=== PATIENT | female | born 1995 | race Caucasian/White ===

== ENCOUNTER 2019-11-13 17:34 | Emergency (ER) | payer SELFPAY ==
[2019-11-13] MEDS ORDERED: Dexamethasone 10 MG/ML VIAL ONE (18:51)
[2019-11-13] MEDS ORDERED: cefTRIAXone\\ROCEPHIN 1 GM VIAL ONE (18:51)
[2019-11-13] MEDS ORDERED: Lidocaine 1% PF 5 ML VIAL ONE (18:51)
== END 2019-11-13 19:38 | disposition home or self-care (01) ==
LOC: ERS 17:34
DX: J36 Peritonsillar abscess (principal); Z87.891 Personal history of nicotine dependence
CPT/HCPCS: 96372; 99283; J0696; J1100; J2001

== ENCOUNTER 2022-04-28 11:09 | Emergency (ER) | payer OTHER ==
[2022-04-28 11:42] LABS: #Basophils 0.1 thou/uL (0.0-0.2); #Eosinphils 0.3 thou/uL (0.0-0.7); #Lymphocytes 3.4 thou/uL (1.20-3.40); #Neutrophils 10.7 thou/uL (1.40-6.50); %Basophils 0.7 % (0.0-1.0); %Eosinophils 2.1 % (0.0-10.0); %Lymphocytes 21.6 % (21.0-51.0); %Monocytes 6.4 % (0.0-10.0); %Neutrophils 69.2 % (42.0-75.0); Hemoglobin 13.2 g/dL (12.0-16.0); Mean Corpuscular HGB CONC 31.2 g/dL (32.0-36.0); Mean Corpuscular Hemoglobin 27.4 pg (27.0-31.0); Mean Corpuscular Volume 87.8 fL (78.0-98.0); Mean Platelet Volume 11.1 fL (7.4-10.4); Platelet Count 225 thou/uL (130-400); RBC Distribution Width 14.5 % (11.5-14.5); Red Blood Cell (RBC) Count 4.81 mill/uL (4.20-5.40); White Blood Cell (WBC) Count 15.5 thou/uL (4.8-10.8)
[2022-04-28 12:12] LABS: ALT (SGPT) 40 U/L (8-55); AST (SGOT) 29 U/L (5-34); Albumin 4.1 g/dL (3.5-5.0); Alkaline Phosphatase 77 U/L (40-110); Anion Gap 17 mmol/L (10-20); BUN (Urea Nitrogen) 16 mg/dL (7.0-18.7); Bilirubin, Total 0.2 mg/dL (0.2-1.2); Calc. Creatinine Clearance 0 mL/min (70-130); Calcium 9.4 mg/dL (7.8-10.44); Carbon Dioxide 22 mmol/L (22-29); Chloride 102 mmol/L (98-107); Globulin 4.4 g/dL (2.4-3.5); Glucose 155 mg/dL (70-105); Lipase 15 U/L (8-78); Potassium 4.8 mmol/L (3.5-5.1); Protein, Total 8.5 g/dL (6.0-8.3); Sodium 136 mmol/L (136-145)
[2022-04-28] MEDS ORDERED: Morphine 4 MG/ML VIAL ONE ×2 (12:14→13:18)
[2022-04-28 12:25] LABS: Bacteria/HPF None Seen HPF (None Seen); Bilirubin Negative (Negative); Blood, Urine Negative (Negative); Clarity Clear (Clear); Glucose, Urine (Dipstick) Normal (Negative); Ketone, Urine Negative (Negative); Leukocyte 75 Leu/uL (Negative); Nitrite Negative (Negative); Protein, Urine (Dipstick) Negative (Neg-Trace); RBC/HPF 0-3 HPF (0-3); Specific Gravity, Urine 1.024 (1.002-1.036); Squamous Epithelial 0-3 HPF (0-3); Urobilinogen Normal mg/dL (Less than 2); WBC/HPF 0-3 HPF (0-3); pH, Urine 6.5 (5.0-9.0)
[2022-04-28 12:40] LABS: BHCG - Serum Negative (NEGATIVE); Pregs Control Background? CLEAR/WHITE (CLR/WHITE); Pregs Control Bar Appear? YES (CONTROL BAR)
== END 2022-04-28 14:19 | disposition home or self-care (01) ==
LOC: ERS 11:09
DX: K80.20 Calculus of gallbladder without cholecystitis without obstruction (principal); Z87.891 Personal history of nicotine dependence
CPT/HCPCS: 76705; 80053; 81003; 81015; 83690; 84703; 85025; 93005; 96374; 96376; J2270

== ENCOUNTER 2022-06-04 22:24 | Inpatient (IN) | payer OTHER ==
[2022-06-04] MEDS ORDERED: Ondansetron PF 4 MG/2 ML Vial ONE (23:47)
[2022-06-04] MEDS ORDERED: Morphine 4 MG/ML VIAL ONE (23:47)
[2022-06-05 00:56] LABS: Hemoglobin 15.5 g/dL (12.0-16.0); Mean Corpuscular HGB CONC 32.3 g/dL (32.0-36.0); Mean Corpuscular Hemoglobin 28.6 pg (27.0-31.0); Mean Corpuscular Volume 88.4 fL (78.0-98.0); Mean Platelet Volume 11.6 fL (7.4-10.4); Platelet Count 370 thou/uL (130-400); RBC Distribution Width 14.8 % (11.5-14.5); Red Blood Cell (RBC) Count 5.41 mill/uL (4.20-5.40); White Blood Cell (WBC) Count 20.5 thou/uL (4.8-10.8)
[2022-06-05 01:02] LABS: BHCG - Serum Negative (NEGATIVE); Pregs Control Background? CLEAR/WHITE (CLR/WHITE); Pregs Control Bar Appear? YES (CONTROL BAR)
[2022-06-05 01:14] LABS: Band 12 % (5-11); MDiff Complete? YES; Monocytes 11 % (0-10); Neutrophil 77 % (42-75); Platelet Morphology Comment Appears Adequate; RBC Morphology Normal
[2022-06-05 01:20] LABS: ALT (SGPT) 152 U/L (8-55); AST (SGOT) 86 U/L (5-34); Albumin 4.1 g/dL (3.5-5.0); Alkaline Phosphatase 554 U/L (40-110); Anion Gap 18 mmol/L (10-20); BUN (Urea Nitrogen) 10 mg/dL (7.0-18.7); Calc. Creatinine Clearance 0 mL/min (70-130); Calcium 10.5 mg/dL (7.8-10.44); Carbon Dioxide 24 mmol/L (22-29); Chloride 97 mmol/L (98-107); Estimated GFR 108; Globulin 5.1 g/dL (2.4-3.5); Glucose 171 mg/dL (70-105); Potassium 3.8 mmol/L (3.5-5.1); Protein, Total 9.2 g/dL (6.0-8.3); Sodium 135 mmol/L (136-145)
[2022-06-05 01:33] LABS: Lipase 6846 U/L (8-78)
[2022-06-05 02:51] LABS: Bilirubin 2+ (Negative); Blood, Urine Trace (Negative); Clarity Turbid (Clear); Glucose, Urine (Dipstick) 30 mg/dL (Negative); Ketone, Urine Negative (Negative); Leukocyte 75 Leu/uL (Negative); Nitrite Negative (Negative); Protein, Urine (Dipstick) 100 mg/dL (Neg-Trace); RBC/HPF 0-3 HPF (0-3); Specific Gravity, Urine 1.025 (1.002-1.036); Squamous Epithelial 0-3 HPF (0-3); Urobilinogen 3 mg/dL (Less than 2); WBC/HPF Greater than 50 HPF (0-3)
[2022-06-05 02:54] LABS: Bacteria/HPF 1+ HPF (None Seen)
[2022-06-05] MEDS ORDERED: Morphine 4 MG/ML VIAL ONE (04:40)
[2022-06-05] MEDS ORDERED: Piperacillin/Tazobactam 3.375 GM VIAL ONE (05:08)
[2022-06-05] MEDS ORDERED: Ondansetron PF 4 MG/2 ML Vial IVP PRN ×2 (05:46→16:15)
[2022-06-05] MEDS ORDERED: Morphine 4 MG/ML VIAL SLOW IVP PRN ×2 (06:02→11:08)
[2022-06-05] MEDS: Sodium Chloride 0.9% 1,000 ML IV SCH ×2 (07:20→13:39)
[2022-06-05 07:41] LABS: Hemoglobin A1c 5.9 % (4.0-6.0)
[2022-06-05 08:44] LABS: #Eosinphils 0.2 thou/uL (0.0-0.7); #Lymphocytes 2.1 thou/uL (1.20-3.40); #Monocytes 1.1 thou/uL (0.11-0.59); #Neutrophils 13.3 thou/uL (1.40-6.50); %Basophils 0.3 % (0.0-1.0); %Eosinophils 1.3 % (0.0-10.0); %Lymphocytes 12.5 % (21.0-51.0); %Monocytes 6.3 % (0.0-10.0); %Neutrophils 79.6 % (42.0-75.0); Hemoglobin 13.2 g/dL (12.0-16.0); Mean Corpuscular HGB CONC 30.2 g/dL (32.0-36.0); Mean Corpuscular Hemoglobin 27.5 pg (27.0-31.0); Mean Platelet Volume 11.8 fL (7.4-10.4); Platelet Count 386 thou/uL (130-400); RBC Distribution Width 15.1 % (11.5-14.5); Red Blood Cell (RBC) Count 4.81 mill/uL (4.20-5.40); White Blood Cell (WBC) Count 16.8 thou/uL (4.8-10.8)
[2022-06-05] MEDS ORDERED: Sodium Chloride 0.9% 1,000 ML IV SCH ×2 (09:00→14:45)
[2022-06-05 11:05] LABS: Albumin 2.9 g/dL (3.5-5.0); Lipase 3213 U/L (8-78)
[2022-06-05 11:06] LABS: Chloride 107 mmol/L (98-107); Potassium 3.8 mmol/L (3.5-5.1); Sodium 137 mmol/L (136-145)
[2022-06-05 11:07] LABS: Glucose 123 mg/dL (70-105)
[2022-06-05 11:08] LABS: Globulin 3.7 g/dL (2.4-3.5); Protein, Total 6.5 g/dL (6.0-8.3)
[2022-06-05 11:09] LABS: ALT (SGPT) 94 U/L (8-55); AST (SGOT) 41 U/L (5-34); Alkaline Phosphatase 386 U/L (40-110); Anion Gap 14 mmol/L (10-20); BUN (Urea Nitrogen) 8 mg/dL (7.0-18.7); Bilirubin, Total 2.2 mg/dL (0.2-1.2); Calc. Creatinine Clearance 0 mL/min (70-130); Calcium 8.3 mg/dL (7.8-10.44); Carbon Dioxide 20 mmol/L (22-29); Estimated GFR 126; Magnesium 1.5 mg/dL (1.6-2.6); Phosphorus 4.8 mg/dL (2.3-4.7)
[2022-06-05] MEDS: Piperacillin/Tazobactam 3.375 GM in Sodium Chloride 0.9% 100 ML IVPB SCH ×2 (11:16→17:08)
[2022-06-05] MEDS ORDERED: Magnesium 2 GM/50 ML(in water) 2 GM in Premix Bag 1 BAG IVPB SCH (12:45)
[2022-06-05] MEDS: Pantoprazole 40 MG VIAL IVP SCH (13:33)
[2022-06-05] MEDS: Enoxaparin Sodium 40 MG/0.4 ML SYRINGE SC SCH (13:33)
[2022-06-05] MEDS: Fentanyl 100 MCG/2 ML VIAL SLOW IVP PRN ×2 (13:34→15:44)
[2022-06-05] MEDS ORDERED: Iopamidol-370 76% 500 ML 1 ML ONE (14:47)
[2022-06-05] MEDS ORDERED: Morphine Sulfate 100 MG in Dextrose 5% in Water 98 ML IV SCH (16:15)
[2022-06-05] MEDS ORDERED: Naloxone HCl 0.4 mg/ml Vial IV PRN (16:15)
[2022-06-05 18:05] LABS: Mean Corpuscular HGB CONC 29.6 g/dL (32.0-36.0); Mean Corpuscular Hemoglobin 27.7 pg (27.0-31.0); Mean Corpuscular Volume 93.8 fL (78.0-98.0); Mean Platelet Volume 11.3 fL (7.4-10.4); Platelet Count 418 thou/uL (130-400); RBC Distribution Width 15.4 % (11.5-14.5); Red Blood Cell (RBC) Count 5.06 mill/uL (4.20-5.40); White Blood Cell (WBC) Count 25.8 thou/uL (4.8-10.8)
[2022-06-05 18:14] LABS: ALT (SGPT) 75 U/L (8-55); AST (SGOT) 29 U/L (5-34); Albumin 2.7 g/dL (3.5-5.0); Alkaline Phosphatase 332 U/L (40-110); Anion Gap 14 mmol/L (10-20); BUN (Urea Nitrogen) 6 mg/dL (7.0-18.7); Bilirubin, Total 1.8 mg/dL (0.2-1.2); Calc. Creatinine Clearance 203 mL/min (70-130); Calcium 7.8 mg/dL (7.8-10.44); Carbon Dioxide 17 mmol/L (22-29); Chloride 110 mmol/L (98-107); Estimated GFR 130; Globulin 3.4 g/dL (2.4-3.5); Glucose 140 mg/dL (70-105); Magnesium 2.1 mg/dL (1.6-2.6); Phosphorus 4.1 mg/dL (2.3-4.7); Potassium 3.8 mmol/L (3.5-5.1); Protein, Total 6.1 g/dL (6.0-8.3); Sodium 137 mmol/L (136-145)
[2022-06-05 18:31] LABS: Band 4 % (5-11); Eosinophils 1 % (0-10); Lymphocytes 3 % (21-51); MDiff Complete? YES; Monocytes 3 % (0-10); Neutrophil 89 % (42-75); Platelet Morphology Comment Appears Increased; RBC Morphology Normal
[2022-06-05] MEDS ORDERED: Lactated Ringer's 500 ML IV SCH (20:30)
[2022-06-05] MEDS: Lactated Ringer's 1,000 ML IV SCH (20:41)
[2022-06-05 22:37] LABS: Hemoglobin 14.7 g/dL (12.0-16.0)
[2022-06-05 23:03] LABS: Phosphorus 4.4 mg/dL (2.3-4.7)
[2022-06-05 23:05] LABS: ALT (SGPT) 65 U/L (8-55); AST (SGOT) 30 U/L (5-34); Albumin 2.6 g/dL (3.5-5.0); Alkaline Phosphatase 312 U/L (40-110); Anion Gap 15 mmol/L (10-20); BUN (Urea Nitrogen) 7 mg/dL (7.0-18.7); Calc. Creatinine Clearance 173 mL/min (70-130); Carbon Dioxide 17 mmol/L (22-29); Chloride 109 mmol/L (98-107); Estimated GFR 125; Globulin 3.6 g/dL (2.4-3.5); Glucose 137 mg/dL (70-105); Magnesium 1.9 mg/dL (1.6-2.6); Potassium 4.4 mmol/L (3.5-5.1); Protein, Total 6.2 g/dL (6.0-8.3); Sodium 137 mmol/L (136-145)
[2022-06-05 23:17] LABS: Lipase 1451 U/L (8-78)
[2022-06-06] MEDS: Lactated Ringer's 1,000 ML IV SCH ×5 (00:15→23:08)
[2022-06-06] MEDS: Piperacillin/Tazobactam 3.375 GM in Sodium Chloride 0.9% 100 ML IVPB SCH (00:15)
[2022-06-06 06:22] LABS: #Lymphocytes 1.4 thou/uL (1.20-3.40); #Monocytes 1.2 thou/uL (0.11-0.59); #Neutrophils 23.1 thou/uL (1.40-6.50); %Basophils 0.1 % (0.0-1.0); %Eosinophils 0.1 % (0.0-10.0); %Lymphocytes 5.2 % (21.0-51.0); %Monocytes 4.7 % (0.0-10.0); %Neutrophils 89.8 % (42.0-75.0); Hemoglobin 14.6 g/dL (12.0-16.0); Mean Corpuscular HGB CONC 30.9 g/dL (32.0-36.0); Mean Corpuscular Hemoglobin 28.4 pg (27.0-31.0); Mean Platelet Volume 11.6 fL (7.4-10.4); Platelet Count 432 thou/uL (130-400); RBC Distribution Width 15.3 % (11.5-14.5); Red Blood Cell (RBC) Count 5.15 mill/uL (4.20-5.40); White Blood Cell (WBC) Count 25.8 thou/uL (4.8-10.8)
[2022-06-06 06:45] LABS: ALT (SGPT) 53 U/L (8-55); AST (SGOT) 20 U/L (5-34); Albumin 2.6 g/dL (3.5-5.0); Alkaline Phosphatase 275 U/L (40-110); Anion Gap 16 mmol/L (10-20); BUN (Urea Nitrogen) 8 mg/dL (7.0-18.7); Bilirubin, Total 1.8 mg/dL (0.2-1.2); Calc. Creatinine Clearance 173 mL/min (70-130); Calcium 8.2 mg/dL (7.8-10.44); Carbon Dioxide 17 mmol/L (22-29); Chloride 108 mmol/L (98-107); Estimated GFR 123; Globulin 3.3 g/dL (2.4-3.5); Glucose 144 mg/dL (70-105); Magnesium 1.9 mg/dL (1.6-2.6); Phosphorus 4.7 mg/dL (2.3-4.7); Potassium 4.2 mmol/L (3.5-5.1); Protein, Total 5.9 g/dL (6.0-8.3); Sodium 137 mmol/L (136-145)
[2022-06-06 07:02] LABS: Lipase 1150 U/L (8-78)
[2022-06-06] MEDS: Pantoprazole 40 MG VIAL IVP SCH (09:06)
[2022-06-06] MEDS: Enoxaparin Sodium 40 MG/0.4 ML SYRINGE SC SCH (09:06)
[2022-06-06 13:38] LABS: Anion Gap 16 mmol/L (10-20); BUN (Urea Nitrogen) 11 mg/dL (7.0-18.7); Calc. Creatinine Clearance 142 mL/min (70-130); Calcium 8.3 mg/dL (7.8-10.44); Carbon Dioxide 15 mmol/L (22-29); Chloride 110 mmol/L (98-107); Estimated GFR 106; Glucose 145 mg/dL (70-105); Potassium 4.8 mmol/L (3.5-5.1); Sodium 136 mmol/L (136-145)
[2022-06-06] MEDS: Meropenem 1 GM in Sodium Chloride 0.9% 100 ML IVPB SCH ×2 (14:41→21:33)
[2022-06-06] MEDS ORDERED: Albumin 25% 25 GM/100 ML BOT IVPB SCH (18:42)
[2022-06-06 19:47] LABS: ALT (SGPT) 40 U/L (8-55); AST (SGOT) 16 U/L (5-34); Albumin 2.5 g/dL (3.5-5.0); Alkaline Phosphatase 256 U/L (40-110); Anion Gap 15 mmol/L (10-20); BUN (Urea Nitrogen) 13 mg/dL (7.0-18.7); Bilirubin, Total 1.9 mg/dL (0.2-1.2); Calc. Creatinine Clearance 86 mL/min (70-130); Calcium 8.4 mg/dL (7.8-10.44); Carbon Dioxide 22 mmol/L (22-29); Chloride 103 mmol/L (98-107); Estimated GFR 58; Globulin 3.6 g/dL (2.4-3.5); Glucose 183 mg/dL (70-105); Potassium 4.3 mmol/L (3.5-5.1); Protein, Total 6.1 g/dL (6.0-8.3); Sodium 136 mmol/L (136-145)
[2022-06-06] MEDS ORDERED: Lactated Ringer's 1,000 ML IV SCH (21:30)
[2022-06-06] MEDS: Albumin 25% 25 GM/100 ML BOT IVPB SCH (23:08)
[2022-06-07] MEDS: Lactated Ringer's 1,000 ML IV SCH ×4 (02:03→15:31)
[2022-06-07] MEDS ORDERED: Albumin 25% 100 ML ONE (05:09)
[2022-06-07] MEDS: Albumin 25% 25 GM/100 ML BOT IVPB SCH ×2 (05:16→11:22)
[2022-06-07] MEDS: Meropenem 1 GM in Sodium Chloride 0.9% 100 ML IVPB SCH ×3 (05:16→21:01)
[2022-06-07 05:34] LABS: Band 35 % (5-11); Hemoglobin 10.5 g/dL (12.0-16.0); Hypochromia SLIGHT = 6-15 cells (100X) (0-5/hpf); Lymphocytes 10 % (21-51); MDiff Complete? YES; Mean Corpuscular HGB CONC 30.9 g/dL (32.0-36.0); Mean Corpuscular Hemoglobin 28.1 pg (27.0-31.0); Mean Corpuscular Volume 91.1 fL (78.0-98.0); Mean Platelet Volume 11.3 fL (7.4-10.4); Monocytes 8 % (0-10); Neutrophil 47 % (42-75); Platelet Count 295 thou/uL (130-400); Platelet Morphology Comment Appears Decreased; RBC Distribution Width 15.1 % (11.5-14.5); Red Blood Cell (RBC) Count 3.74 mill/uL (4.20-5.40); White Blood Cell (WBC) Count 18.3 thou/uL (4.8-10.8)
[2022-06-07 05:55] LABS: ALT (SGPT) 24 U/L (8-55); AST (SGOT) 14 U/L (5-34); Albumin 3.6 g/dL (3.5-5.0); Alkaline Phosphatase 163 U/L (40-110); Anion Gap 15 mmol/L (10-20); BUN (Urea Nitrogen) 14 mg/dL (7.0-18.7); Bilirubin, Total 1.9 mg/dL (0.2-1.2); Calc. Creatinine Clearance 117 mL/min (70-130); Calcium 8.5 mg/dL (7.8-10.44); Carbon Dioxide 21 mmol/L (22-29); Chloride 104 mmol/L (98-107); Estimated GFR 73; Globulin 2.6 g/dL (2.4-3.5); Glucose 132 mg/dL (70-105); Lipase 609 U/L (8-78); Potassium 4.6 mmol/L (3.5-5.1); Protein, Total 6.2 g/dL (6.0-8.3); Sodium 135 mmol/L (136-145)
[2022-06-07] MEDS ORDERED: Succinylcholine 200 MG/10 ml SYRINGE FS ONE (08:43)
[2022-06-07] MEDS ORDERED: Morphine 4 MG/ML VIAL SLOW IVP PRN ×2 (08:45→09:15)
[2022-06-07] MEDS ORDERED: Propofol BOLUS 1,000 MG/100 ML VIAL IV PRN ×2 (08:45→09:15)
[2022-06-07] MEDS ORDERED: Fentanyl BOLUS 250 ML IVPB PRN ×2 (08:45→09:15)
[2022-06-07] MEDS ORDERED: Ventilator Sedation Protocol 1 EACH FS SCH (08:45)
[2022-06-07] MEDS ORDERED: Midazolam HCl 2 mg/2 ml Vial SLOW IVP PRN (09:04)
[2022-06-07] MEDS ORDERED: Fentanyl CADD 100 ML IV SCH (09:15)
[2022-06-07] MEDS ORDERED: DISCONTINUE PREVIOUS NARCOTIC PAIN MEDICATIONS AND BENZODIAZEPINES FS SCH (09:15)
[2022-06-07] MEDS ORDERED: Propofol 1,000 MG/100 ML VIAL IV PRN (09:15)
[2022-06-07 10:14] LABS: Actual Bicarbonate (HCO3a) 15.8 mEq/L (22-28); Base Excess (BEa) -8.6 mEq/L (-2.0 to +3.0); CO2 Tension 29.2 mmHg (35.0-45.0); Calcium, Ionized (arterial) 1.09 mmol/L (1.12-1.30); Carboxyhemoglobin (COHb) 0.4 gm% (0.0-3.0); O2 Tension (PaO2), arterial 114.1 mmHg (80.0-100.0); Potassium - ABG Lab 3.93 mmol/L (3.70-5.30); pH, Arterial 7.35 (7.35-7.45)
[2022-06-07 10:17] LABS: Puncture Site LRA
[2022-06-07] MEDS: Enoxaparin Sodium 40 MG/0.4 ML SYRINGE SC SCH (11:01)
[2022-06-07] MEDS: Fentanyl CADD 100 ML IV SCH (11:11)
[2022-06-07] MEDS: Pantoprazole 40 MG VIAL IVP SCH (11:19)
[2022-06-07] MEDS: Propofol 1,000 MG/100 ML VIAL IV PRN ×3 (11:21→19:59)
[2022-06-07] MEDS: Vecuronium 10 MG VIAL IVP PRN ×4 (11:39→22:28)
[2022-06-07] MEDS: Phenylephrine 40 MG/NS 250 ML 40 MG in Premix Bag 1 BAG IVPB SCH (20:52)
[2022-06-08] MEDS: Lactated Ringer's 1,000 ML IV SCH ×3 (00:09→16:55)
[2022-06-08] MEDS: Vecuronium 10 MG VIAL IVP PRN ×2 (01:03→03:49)
[2022-06-08] MEDS: Phenylephrine 40 MG/NS 250 ML 40 MG in Premix Bag 1 BAG IVPB SCH ×2 (01:13→05:00)
[2022-06-08] MEDS: Acetaminophen 325 MG TAB PO PRN (02:22)
[2022-06-08] MEDS: Propofol 1,000 MG/100 ML VIAL IV PRN ×2 (02:50→14:56)
[2022-06-08] MEDS ORDERED: VANCOMYCIN 2 GRAM/500 ML BAG 2 GM in Premix Bag 1 BAG IVPB SCH (03:30)
[2022-06-08 03:54] LABS: ALT (SGPT) 15 U/L (8-55); AST (SGOT) 23 U/L (5-34); Albumin 3.2 g/dL (3.5-5.0); Alkaline Phosphatase 144 U/L (40-110); Anion Gap 19 mmol/L (10-20); BUN (Urea Nitrogen) 21 mg/dL (7.0-18.7); Bilirubin, Total 1.7 mg/dL (0.2-1.2); Calc. Creatinine Clearance 61 mL/min (70-130); Calcium 8.4 mg/dL (7.8-10.44); Carbon Dioxide 14 mmol/L (22-29); Chloride 102 mmol/L (98-107); Estimated GFR 34; Globulin 2.6 g/dL (2.4-3.5); Glucose 159 mg/dL (70-105); Potassium 4.4 mmol/L (3.5-5.1); Protein, Total 5.8 g/dL (6.0-8.3); Sodium 131 mmol/L (136-145)
[2022-06-08 04:36] LABS: Anisocytosis SLIGHT = 6-15 cells (100X) (0-5/hpf); Band 48 % (5-11); Eosinophils 1 % (0-10); Hemoglobin 12.6 g/dL (12.0-16.0); Hypochromia SLIGHT = 6-15 cells (100X) (0-5/hpf); Lymphocytes 4 % (21-51); MDiff Complete? YES; Mean Corpuscular HGB CONC 30.3 g/dL (32.0-36.0); Mean Corpuscular Hemoglobin 27.1 pg (27.0-31.0); Mean Corpuscular Volume 89.2 fL (78.0-98.0); Mean Platelet Volume 11.2 fL (7.4-10.4); Monocytes 4 % (0-10); Neutrophil 43 % (42-75); Platelet Count 410 thou/uL (130-400); Platelet Morphology Comment Appears Increased; Polychromasia SLIGHT = 2-3 cells (100X) (0-2/hpf); RBC Distribution Width 15.2 % (11.5-14.5); Red Blood Cell (RBC) Count 4.64 mill/uL (4.20-5.40); White Blood Cell (WBC) Count 32.2 thou/uL (4.8-10.8)
[2022-06-08] MEDS: Meropenem 1 GM in Sodium Chloride 0.9% 100 ML IVPB SCH ×2 (05:00→17:44)
[2022-06-08 07:08] LABS: Actual Bicarbonate (HCO3a) 15.8 mEq/L (22-28); CO2 Tension 42.5 mmHg (35.0-45.0); Calcium, Ionized (arterial) 1.12 mmol/L (1.12-1.30); Carboxyhemoglobin (COHb) 0.6 gm% (0.0-3.0); Hemoglobin (Hb) 13.2 g/dL (12.0-16.0); O2 Tension (PaO2), arterial 72.8 mmHg (80.0-100.0); Potassium - ABG Lab 4.42 mmol/L (3.70-5.30)
[2022-06-08 07:12] LABS: Puncture Site RRA; pH, Arterial 7.19 (7.35-7.45)
[2022-06-08 07:13] LABS: ALV-art Gradient 123.625 mmHg (0-20)
[2022-06-08] MEDS ORDERED: Sodium Bicarb 50 MEQ/50 ML VIAL ONE (07:36)
[2022-06-08] MEDS ORDERED: Sodium Bicarbonate 140 MEQ in Dextrose 5% in Water 1,000 ML IV SCH ×2 (07:45→11:09)
[2022-06-08] MEDS ORDERED: NOREPINEPHRINE 8 MG/250 ML-D5W 250 ML IVPB SCH (07:45)
[2022-06-08] MEDS ORDERED: Sodium Bicarbonate 100 MEQ in Dextrose 5% in Water 1,000 ML IV SCH (07:45)
[2022-06-08] MEDS ORDERED: fentaNYL Citrate/PF 100 MCG/2 ML SYRINGE ONE (07:55)
[2022-06-08] MEDS ORDERED: Norepinephrine 4 MG/4 ML VIAL ONE (07:55)
[2022-06-08] MEDS ORDERED: Phenylephrine 10 MG/ML VIAL ONE (07:55)
[2022-06-08] MEDS ORDERED: Rocuronium Bromide 10 MG/ML (10ML VIAL) ONE (08:16)
[2022-06-08] MEDS ORDERED: Calcium Chloride 1 GM/10 ML Abboject SYRINGE ONE (08:19)
[2022-06-08] MEDS ORDERED: Calcium Chloride 1 GM/10 ML Abboject SYRINGE IVP SCH (08:30)
[2022-06-08] MEDS ORDERED: Midazolam HCl 5 mg/5 ml Vial ONE (08:36)
[2022-06-08 08:52] LABS: INR-International Normal Ratio 1.5; PTT 31.8 sec (22.9-36.1); Prothrombin Time 18.6 sec (12.0-14.7)
[2022-06-08] MEDS ORDERED: Sodium Bicarbonate 2.5 MEQ/5 ML VIAL ONE (09:27)
[2022-06-08] MEDS ORDERED: Sodium Bicarb 50 MEQ/50 ML Abboject 8.4% SYRINGE ONE (09:28)
[2022-06-08] MEDS: Enoxaparin Sodium 40 MG/0.4 ML SYRINGE SC SCH (09:35)
[2022-06-08 11:20] LABS: INR-International Normal Ratio 1.7; PTT 31.5 sec (22.9-36.1); Prothrombin Time 20.2 sec (12.0-14.7)
[2022-06-08 11:22] LABS: Actual Bicarbonate (HCO3a) 17.3 mEq/L (22-28); Base Excess (BEa) -5.9 mEq/L (-2.0 to +3.0); CO2 Tension 26.9 mmHg (35.0-45.0); Calcium, Ionized (arterial) 1.07 mmol/L (1.12-1.30); Hemoglobin (Hb) 10.7 g/dL (12.0-16.0); O2 Tension (PaO2), arterial 110.6 mmHg (80.0-100.0); Potassium - ABG Lab 3.67 mmol/L (3.70-5.30); Puncture Site Arterial Line; pH, Arterial 7.43 (7.35-7.45)
[2022-06-08 11:23] LABS: ALV-art Gradient 140.975 mmHg (0-20)
[2022-06-08 11:27] LABS: Hemoglobin 10.8 g/dL (12.0-16.0); Mean Corpuscular HGB CONC 30.8 g/dL (32.0-36.0); Mean Corpuscular Hemoglobin 27.6 pg (27.0-31.0); Mean Corpuscular Volume 89.7 fL (78.0-98.0); Platelet Count 277 thou/uL (130-400); RBC Distribution Width 15.2 % (11.5-14.5); White Blood Cell (WBC) Count 23.6 thou/uL (4.8-10.8)
[2022-06-08 11:58] LABS: Band 41 % (5-11); Lymphocytes 1 % (21-51); MDiff Complete? YES; Monocytes 3 % (0-10); Neutrophil 55 % (42-75); Platelet Morphology Comment Appears Adequate; Polychromasia SLIGHT = 2-3 cells (100X) (0-2/hpf)
[2022-06-08] MEDS: Pantoprazole 40 MG VIAL IVP SCH (12:22)
[2022-06-08 13:30] LABS: Creatinine, Urine 71.79 mg/dL (47-110)
[2022-06-08] MEDS ORDERED: Fentanyl CADD 100 ML ONE (13:52)
[2022-06-08] MEDS ORDERED: Vancomycin 1 GM in Premix Bag 1 BAG IVPB SCH (15:00)
[2022-06-08] MEDS ORDERED: Albumin 5% 500 ML ONE (15:59)
[2022-06-08] MEDS ORDERED: diphenhydrAMINE 50 MG/ML VIAL IVP PRN (16:04)
[2022-06-08 16:18] LABS: ALT (SGPT) 22 U/L (8-55); AST (SGOT) 41 U/L (5-34); Albumin 1.9 g/dL (3.5-5.0); Alkaline Phosphatase 105 U/L (40-110); Anion Gap 14 mmol/L (10-20); BUN (Urea Nitrogen) 20 mg/dL (7.0-18.7); Bilirubin, Total 1.1 mg/dL (0.2-1.2); Calc. Creatinine Clearance 99 mL/min (70-130); Calcium 7.3 mg/dL (7.8-10.44); Carbon Dioxide 19 mmol/L (22-29); Chloride 108 mmol/L (98-107); Estimated GFR 59; Globulin 1.9 g/dL (2.4-3.5); Glucose 155 mg/dL (70-105); Potassium 3.5 mmol/L (3.5-5.1); Protein, Total 3.8 g/dL (6.0-8.3); Sodium 137 mmol/L (136-145)
[2022-06-08] MEDS: diphenhydrAMINE 50 MG/ML VIAL IVP PRN (16:55)
[2022-06-08] MEDS: Midazolam HCl 2 mg/2 ml Vial SLOW IVP PRN (21:04)
[2022-06-09] MEDS: Lactated Ringer's 1,000 ML IV SCH ×3 (00:37→16:12)
[2022-06-09] MEDS ORDERED: VANCOMYCIN 1.25 GM/250 ML BAG 1.25 GM in Premix Bag 1 BAG IVPB SCH (03:00)
[2022-06-09] MEDS ORDERED: Fentanyl CADD 100 ML ONE ×2 (03:58→19:56)
[2022-06-09] MEDS: Fentanyl CADD 100 ML IV SCH ×2 (04:10→19:59)
[2022-06-09 05:02] LABS: ALT (SGPT) 15 U/L (8-55); AST (SGOT) 25 U/L (5-34); Albumin 2.2 g/dL (3.5-5.0); Alkaline Phosphatase 88 U/L (40-110); Anion Gap 12 mmol/L (10-20); BUN (Urea Nitrogen) 21 mg/dL (7.0-18.7); Calc. Creatinine Clearance 164 mL/min (70-130); Calcium 7.4 mg/dL (7.8-10.44); Carbon Dioxide 21 mmol/L (22-29); Chloride 107 mmol/L (98-107); Estimated GFR 108; Globulin 1.9 g/dL (2.4-3.5); Glucose 120 mg/dL (70-105); Potassium 3.3 mmol/L (3.5-5.1); Protein, Total 4.1 g/dL (6.0-8.3); Sodium 137 mmol/L (136-145)
[2022-06-09 05:08] LABS: Hemoglobin 8.9 g/dL (12.0-16.0); Mean Corpuscular HGB CONC 31.8 g/dL (32.0-36.0); Mean Corpuscular Hemoglobin 27.8 pg (27.0-31.0); Mean Corpuscular Volume 87.5 fL (78.0-98.0); Mean Platelet Volume 10.8 fL (7.4-10.4); Platelet Count 261 thou/uL (130-400); RBC Distribution Width 14.8 % (11.5-14.5); Red Blood Cell (RBC) Count 3.21 mill/uL (4.20-5.40); White Blood Cell (WBC) Count 24.5 thou/uL (4.8-10.8)
[2022-06-09 05:09] LABS: Band 43 % (5-11); Hypochromia SLIGHT = 6-15 cells (100X) (0-5/hpf); Lymphocytes 3 % (21-51); MDiff Complete? YES; Monocytes 6 % (0-10); Neutrophil 48 % (42-75); Platelet Morphology Comment Appears Adequate
[2022-06-09] MEDS: Propofol 1,000 MG/100 ML VIAL IV PRN ×2 (05:14→14:27)
[2022-06-09] MEDS: Meropenem 1 GM in Sodium Chloride 0.9% 100 ML IVPB SCH ×3 (05:14→21:46)
[2022-06-09] MEDS ORDERED: Potassium Chloride 40 MEQ in Premix Bag 1 BAG IVPB SCH (06:15)
[2022-06-09] MEDS: Albumin 25% 25 GM/100 ML BOT IVPB SCH ×4 (06:26→23:13)
[2022-06-09 06:34] LABS: Phosphorus 2.1 mg/dL (2.3-4.7)
[2022-06-09 06:36] LABS: Magnesium 1.5 mg/dL (1.6-2.6)
[2022-06-09 06:45] LABS: Actual Bicarbonate (HCO3a) 21.9 mEq/L (22-28); Base Excess (BEa) -1.1 mEq/L (-2.0 to +3.0); Calcium, Ionized (arterial) 1.05 mmol/L (1.12-1.30); Carboxyhemoglobin (COHb) 0.2 gm% (0.0-3.0); Hemoglobin (Hb) 9.1 g/dL (12.0-16.0); O2 Tension (PaO2), arterial 132.4 mmHg (80.0-100.0); Potassium - ABG Lab 3.21 mmol/L (3.70-5.30); pH, Arterial 7.48 (7.35-7.45)
[2022-06-09 06:59] LABS: Puncture Site Arterial Line
[2022-06-09] MEDS ORDERED: Magnesium 2 GM/50 ML(in water) 2 GM in Premix Bag 1 BAG IVPB SCH ×3 (07:45→15:00)
[2022-06-09] MEDS ORDERED: Sodium Phosphate 30 MMOL in Sodium Chloride 0.9% 250 ML 250 ML IVPB SCH (08:00)
[2022-06-09] MEDS ORDERED: Lactated Ringer's 1,000 ML IV SCH (08:30)
[2022-06-09] MEDS: Pantoprazole 40 MG VIAL IVP SCH (08:58)
[2022-06-09] MEDS: Potassium Chloride 20 MEQ in Lactated Ringer's 1,000 ML IV SCH ×3 (08:59→21:44)
[2022-06-09] MEDS ORDERED: HYDROmorphone 2 MG/ML VIAL ONE (09:14)
[2022-06-09] MEDS ORDERED: fentaNYL Citrate/PF 100 MCG/2 ML SYRINGE ONE (09:14)
[2022-06-09] MEDS ORDERED: Midazolam HCl 2 mg/2 ml Vial ONE (10:46)
[2022-06-09] MEDS ORDERED: Iopamidol 30 ML ONE (11:15)
[2022-06-09] MEDS ORDERED: Indomethacin 50 MG SUPP ONE (11:16)
[2022-06-09] MEDS ORDERED: Lidocaine 1% PF 5 ML VIAL ONE (11:40)
[2022-06-09] MEDS ORDERED: diphenhydrAMINE 50 MG/ML VIAL ONE (11:40)
[2022-06-09] MEDS ORDERED: Dexamethasone 20 MG/5 ML VIAL ONE (11:40)
[2022-06-09] MEDS ORDERED: Phenylephrine 10 MG/ML VIAL ONE (11:40)
[2022-06-09] MEDS ORDERED: Ondansetron PF 4 MG/2 ML Vial ONE (11:40)
[2022-06-09] MEDS: Enoxaparin Sodium 40 MG/0.4 ML SYRINGE SC SCH (12:30)
[2022-06-09] MEDS: diphenhydrAMINE 50 MG/ML VIAL IVP PRN (23:13)
[2022-06-10] MEDS: Midazolam HCl 2 mg/2 ml Vial SLOW IVP PRN ×3 (03:18→15:47)
[2022-06-10] MEDS: Potassium Chloride 20 MEQ in Lactated Ringer's 1,000 ML IV SCH ×3 (03:34→20:15)
[2022-06-10 05:11] LABS: ALT (SGPT) 36 U/L (8-55); AST (SGOT) 69 U/L (5-34); Albumin 3.2 g/dL (3.5-5.0); Alkaline Phosphatase 94 U/L (40-110); Anion Gap 14 mmol/L (10-20); BUN (Urea Nitrogen) 20 mg/dL (7.0-18.7); Bilirubin, Total 0.9 mg/dL (0.2-1.2); Calc. Creatinine Clearance 202 mL/min (70-130); Carbon Dioxide 22 mmol/L (22-29); Chloride 108 mmol/L (98-107); Estimated GFR 123; Glucose 134 mg/dL (70-105); Potassium 4.7 mmol/L (3.5-5.1); Protein, Total 5.2 g/dL (6.0-8.3); Sodium 139 mmol/L (136-145)
[2022-06-10] MEDS: Meropenem 1 GM in Sodium Chloride 0.9% 100 ML IVPB SCH ×3 (05:16→23:08)
[2022-06-10 06:10] LABS: Band 13 % (5-11); Hemoglobin 7.5 g/dL (12.0-16.0); Lymphocytes 10 % (21-51); MDiff Complete? YES; Mean Corpuscular HGB CONC 31.6 g/dL (32.0-36.0); Mean Corpuscular Hemoglobin 27.9 pg (27.0-31.0); Mean Corpuscular Volume 88.3 fL (78.0-98.0); Mean Platelet Volume 10.9 fL (7.4-10.4); Monocytes 7 % (0-10); Neutrophil 70 % (42-75); Platelet Count 244 thou/uL (130-400); RBC Distribution Width 15.1 % (11.5-14.5); Red Blood Cell (RBC) Count 2.69 mill/uL (4.20-5.40); White Blood Cell (WBC) Count 22.2 thou/uL (4.8-10.8)
[2022-06-10 07:06] LABS: Actual Bicarbonate (HCO3a) 18.3 mEq/L (22-28); Base Excess (BEa) -6.4 mEq/L (-2.0 to +3.0); CO2 Tension 33.3 mmHg (35.0-45.0); Calcium, Ionized (arterial) 1.11 mmol/L (1.12-1.30); Carboxyhemoglobin (COHb) 0.3 gm% (0.0-3.0); Hemoglobin (Hb) 8.8 g/dL (12.0-16.0); O2 Tension (PaO2), arterial 161.1 mmHg (80.0-100.0); Potassium - ABG Lab 4.66 mmol/L (3.70-5.30); pH, Arterial 7.36 (7.35-7.45)
[2022-06-10 07:11] LABS: ALV-art Gradient 82.475 mmHg (0-20); Puncture Site Arterial Line
[2022-06-10] MEDS ORDERED: SUGAMMADEX SODIUM 200 MG/2 ML VIAL ONE (07:31)
[2022-06-10] MEDS ORDERED: fentaNYL Citrate/PF 100 MCG/2 ML SYRINGE ONE (07:31)
[2022-06-10] MEDS ORDERED: Rocuronium Bromide 10 MG/ML (10ML VIAL) ONE (08:20)
[2022-06-10] MEDS ORDERED: Ondansetron PF 4 MG/2 ML Vial ONE (08:20)
[2022-06-10] MEDS ORDERED: Dexamethasone 20 MG/5 ML VIAL ONE (08:20)
[2022-06-10] MEDS ORDERED: PROPOFOL 200 MG/20 ML VIAL ONE (08:20)
[2022-06-10] MEDS ORDERED: Fentanyl CADD 100 ML ONE ×2 (10:03→20:09)
[2022-06-10] MEDS: Fentanyl CADD 100 ML IV SCH ×2 (10:08→20:17)
[2022-06-10] MEDS: Pantoprazole 40 MG VIAL IVP SCH (11:06)
[2022-06-10] MEDS: Enoxaparin Sodium 40 MG/0.4 ML SYRINGE SC SCH (11:06)
[2022-06-10] MEDS: diphenhydrAMINE 50 MG/ML VIAL IVP PRN ×3 (11:06→23:07)
[2022-06-11] MEDS: Potassium Chloride 20 MEQ in Lactated Ringer's 1,000 ML IV SCH ×4 (00:08→21:06)
[2022-06-11] MEDS: Propofol 1,000 MG/100 ML VIAL IV PRN ×2 (02:21→14:36)
[2022-06-11] MEDS: Midazolam HCl 2 mg/2 ml Vial SLOW IVP PRN (02:21)
[2022-06-11 05:07] LABS: ALT (SGPT) 31 U/L (8-55); AST (SGOT) 34 U/L (5-34); Albumin 2.7 g/dL (3.5-5.0); Alkaline Phosphatase 92 U/L (40-110); Anion Gap 13 mmol/L (10-20); BUN (Urea Nitrogen) 17 mg/dL (7.0-18.7); Bilirubin, Total 0.7 mg/dL (0.2-1.2); Calc. Creatinine Clearance 215 mL/min (70-130); Calcium 7.9 mg/dL (7.8-10.44); Carbon Dioxide 23 mmol/L (22-29); Chloride 110 mmol/L (98-107); Estimated GFR 126; Globulin 2.3 g/dL (2.4-3.5); Glucose 110 mg/dL (70-105); Potassium 4.9 mmol/L (3.5-5.1); Sodium 141 mmol/L (136-145)
[2022-06-11 05:09] LABS: Band 14 % (5-11); Eosinophils 1 % (0-10); Hemoglobin 9.5 g/dL (12.0-16.0); Lymphocytes 12 % (21-51); MDiff Complete? YES; Mean Corpuscular HGB CONC 31.5 g/dL (32.0-36.0); Mean Corpuscular Hemoglobin 27.5 pg (27.0-31.0); Mean Corpuscular Volume 87.3 fL (78.0-98.0); Mean Platelet Volume 10.6 fL (7.4-10.4); Myelocyte 1 % (0-0); Neutrophil 72 % (42-75); Platelet Count 269 thou/uL (130-400); RBC Distribution Width 15.5 % (11.5-14.5); Red Blood Cell (RBC) Count 3.46 mill/uL (4.20-5.40); White Blood Cell (WBC) Count 28.6 thou/uL (4.8-10.8)
[2022-06-11] MEDS: diphenhydrAMINE 50 MG/ML VIAL IVP PRN ×2 (05:09→14:36)
[2022-06-11] MEDS: Meropenem 1 GM in Sodium Chloride 0.9% 100 ML IVPB SCH ×3 (05:10→21:36)
[2022-06-11 07:14] LABS: Actual Bicarbonate (HCO3a) 19.7 mEq/L (22-28); Base Excess (BEa) -5.4 mEq/L (-2.0 to +3.0); CO2 Tension 37.1 mmHg (35.0-45.0); Calcium, Ionized (arterial) 1.16 mmol/L (1.12-1.30); Carboxyhemoglobin (COHb) 0.3 gm% (0.0-3.0); Hemoglobin (Hb) 10.8 g/dL (12.0-16.0); O2 Tension (PaO2), arterial 71.9 mmHg (80.0-100.0); Potassium - ABG Lab 4.82 mmol/L (3.70-5.30); pH, Arterial 7.34 (7.35-7.45)
[2022-06-11 07:19] LABS: Puncture Site RRA
[2022-06-11 07:20] LABS: ALV-art Gradient 95.625 mmHg (0-20)
[2022-06-11] MEDS ORDERED: Fentanyl CADD 100 ML ONE (07:28)
[2022-06-11] MEDS: Fentanyl CADD 100 ML IV SCH (07:30)
[2022-06-11] MEDS: Pantoprazole 40 MG VIAL IVP SCH (08:06)
[2022-06-11] MEDS: Enoxaparin Sodium 40 MG/0.4 ML SYRINGE SC SCH (08:06)
[2022-06-12] MEDS: Fentanyl CADD 100 ML IV SCH ×2 (03:39→22:11)
[2022-06-12] MEDS: Potassium Chloride 20 MEQ in Lactated Ringer's 1,000 ML IV SCH ×2 (04:09→08:29)
[2022-06-12] MEDS: diphenhydrAMINE 50 MG/ML VIAL IVP PRN (04:58)
[2022-06-12] MEDS: Propofol 1,000 MG/100 ML VIAL IV PRN ×2 (05:14→14:00)
[2022-06-12] MEDS: Meropenem 1 GM in Sodium Chloride 0.9% 100 ML IVPB SCH ×3 (05:16→21:27)
[2022-06-12 05:31] LABS: ALT (SGPT) 34 U/L (8-55); AST (SGOT) 46 U/L (5-34); Albumin 2.4 g/dL (3.5-5.0); Alkaline Phosphatase 98 U/L (40-110); Anion Gap 15 mmol/L (10-20); BUN (Urea Nitrogen) 12 mg/dL (7.0-18.7); Bilirubin, Total 0.6 mg/dL (0.2-1.2); Calc. Creatinine Clearance 267 mL/min (70-130); Calcium 7.8 mg/dL (7.8-10.44); Carbon Dioxide 21 mmol/L (22-29); Chloride 110 mmol/L (98-107); Estimated GFR 131; Globulin 2.4 g/dL (2.4-3.5); Glucose 112 mg/dL (70-105); Potassium 5.2 mmol/L (3.5-5.1); Protein, Total 4.8 g/dL (6.0-8.3); Sodium 141 mmol/L (136-145)
[2022-06-12 06:47] LABS: Band 21 % (5-11); Hemoglobin 9.5 g/dL (12.0-16.0); Lymphocytes 10 % (21-51); MDiff Complete? YES; Mean Corpuscular Hemoglobin 28.2 pg (27.0-31.0); Mean Corpuscular Volume 88.1 fL (78.0-98.0); Mean Platelet Volume 10.8 fL (7.4-10.4); Metamyelocyte 1 % (0-0); Monocytes 4 % (0-10); Neutrophil 64 % (42-75); Platelet Count 275 thou/uL (130-400); RBC Distribution Width 15.7 % (11.5-14.5); Red Blood Cell (RBC) Count 3.38 mill/uL (4.20-5.40); White Blood Cell (WBC) Count 31.7 thou/uL (4.8-10.8)
[2022-06-12] MEDS ORDERED: fentaNYL Citrate/PF 100 MCG/2 ML SYRINGE ONE (07:39)
[2022-06-12] MEDS ORDERED: Ondansetron PF 4 MG/2 ML Vial ONE (08:04)
[2022-06-12] MEDS ORDERED: Rocuronium Bromide 10 MG/ML (10ML VIAL) ONE (08:04)
[2022-06-12] MEDS ORDERED: Phenylephrine 10 MG/ML VIAL ONE (08:04)
[2022-06-12] MEDS ORDERED: PROPOFOL 200 MG/20 ML VIAL ONE (08:04)
[2022-06-12] MEDS: Enoxaparin Sodium 40 MG/0.4 ML SYRINGE SC SCH (08:28)
[2022-06-12] MEDS: Pantoprazole 40 MG VIAL IVP SCH (08:29)
[2022-06-12] MEDS: Sodium Chloride 0.45% 1,000 ML IV SCH (10:10)
[2022-06-12] MEDS: Micafungin 100 MG in Sodium Chloride 0.9% 100 ML IVPB SCH (13:47)
[2022-06-12] MEDS: VANCOMYCIN 2 GRAM/500 ML BAG 2 GM in Premix Bag 1 BAG IVPB SCH ×2 (13:47→22:11)
[2022-06-12] MEDS ORDERED: Vancomycin 1 GM in Premix Bag 1 BAG IVPB SCH (21:00)
[2022-06-12] MEDS ORDERED: Fentanyl CADD 100 ML ONE (21:55)
[2022-06-13 06:21] LABS: Hemoglobin 9.5 g/dL (12.0-16.0); Mean Corpuscular Hemoglobin 27.3 pg (27.0-31.0); Mean Platelet Volume 10.3 fL (7.4-10.4); Platelet Count 271 thou/uL (130-400); RBC Distribution Width 15.8 % (11.5-14.5); Red Blood Cell (RBC) Count 3.48 mill/uL (4.20-5.40); White Blood Cell (WBC) Count 32.5 thou/uL (4.8-10.8)
[2022-06-13] MEDS: VANCOMYCIN 2 GRAM/500 ML BAG 2 GM in Premix Bag 1 BAG IVPB SCH ×2 (06:24→14:36)
[2022-06-13 06:29] LABS: Phosphorus 4.3 mg/dL (2.3-4.7)
[2022-06-13 06:36] LABS: ALT (SGPT) 37 U/L (8-55); AST (SGOT) 56 U/L (5-34); Alkaline Phosphatase 135 U/L (40-110); Anion Gap 17 mmol/L (10-20); BUN (Urea Nitrogen) 10 mg/dL (7.0-18.7); Band 11 % (5-11); Bilirubin, Total 0.9 mg/dL (0.2-1.2); Calc. Creatinine Clearance 244 mL/min (70-130); Calcium 7.5 mg/dL (7.8-10.44); Carbon Dioxide 19 mmol/L (22-29); Chloride 109 mmol/L (98-107); Eosinophils 2 % (0-10); Estimated GFR 128; Globulin 2.9 g/dL (2.4-3.5); Glucose 113 mg/dL (70-105); Lymphocytes 6 % (21-51); MDiff Complete? YES; Magnesium 1.7 mg/dL (1.6-2.6); Metamyelocyte 1 % (0-0); Monocytes 5 % (0-10); Myelocyte 2 % (0-0); Neutrophil 73 % (42-75); Potassium 4.9 mmol/L (3.5-5.1); Protein, Total 4.9 g/dL (6.0-8.3); Sodium 140 mmol/L (136-145); Toxic Granulation SLIGHT
[2022-06-13] MEDS: Midazolam HCl 2 mg/2 ml Vial SLOW IVP PRN (07:05)
[2022-06-13] MEDS: Meropenem 1 GM in Sodium Chloride 0.9% 100 ML IVPB SCH ×3 (07:12→21:21)
[2022-06-13 07:20] LABS: Actual Bicarbonate (HCO3a) 17.8 mEq/L (22-28); Base Excess (BEa) -6.4 mEq/L (-2.0 to +3.0); CO2 Tension 30.8 mmHg (35.0-45.0); Calcium, Ionized (arterial) 1.11 mmol/L (1.12-1.30); Carboxyhemoglobin (COHb) 0.4 gm% (0.0-3.0); Hemoglobin (Hb) 10.4 g/dL (12.0-16.0); O2 Tension (PaO2), arterial 76.3 mmHg (80.0-100.0); Potassium - ABG Lab 4.45 mmol/L (3.70-5.30); pH, Arterial 7.38 (7.35-7.45)
[2022-06-13] MEDS: Propofol 1,000 MG/100 ML VIAL IV PRN (07:31)
[2022-06-13 07:51] LABS: Puncture Site LBA
[2022-06-13] MEDS: Sodium Chloride 0.45% 1,000 ML IV SCH (08:20)
[2022-06-13] MEDS: Enoxaparin Sodium 40 MG/0.4 ML SYRINGE SC SCH (08:20)
[2022-06-13] MEDS: Pantoprazole 40 MG VIAL IVP SCH (08:20)
[2022-06-13] MEDS ORDERED: Midazolam In 0.9 % NaCl/PF 100 ML IVPB SCH (09:45)
[2022-06-13] MEDS ORDERED: Furosemide 20 MG/2 ML VIAL SLOW IVP SCH (09:45)
[2022-06-13] MEDS: Furosemide 20 MG/2 ML VIAL SLOW IVP SCH (10:27)
[2022-06-13] MEDS: Albumin 25% 25 GM/100 ML BOT IVPB SCH ×3 (10:41→23:41)
[2022-06-13] MEDS: Micafungin 100 MG in Sodium Chloride 0.9% 100 ML IVPB SCH (12:52)
[2022-06-13 14:27] LABS: Vancomycin, Trough 39.9 ug/mL
[2022-06-13] MEDS ORDERED: Vancomycin 1 GM in Premix Bag 1 BAG IVPB SCH (15:15)
[2022-06-13] MEDS ORDERED: Fentanyl CADD 100 ML ONE (16:22)
[2022-06-13] MEDS: Fentanyl CADD 100 ML IV SCH (16:23)
[2022-06-14] MEDS: Sodium Chloride 0.45% 1,000 ML IV SCH ×2 (02:08→23:07)
[2022-06-14 03:22] LABS: Vancomycin, Random 13.5 ug/mL (See Comment)
[2022-06-14 03:50] LABS: ALT (SGPT) 32 U/L (8-55); AST (SGOT) 33 U/L (5-34); Albumin 3.1 g/dL (3.5-5.0); Alkaline Phosphatase 89 U/L (40-110); Anion Gap 19 mmol/L (10-20); BUN (Urea Nitrogen) 11 mg/dL (7.0-18.7); Bilirubin, Total 1.1 mg/dL (0.2-1.2); Calc. Creatinine Clearance 240 mL/min (70-130); Calcium 8.2 mg/dL (7.8-10.44); Carbon Dioxide 18 mmol/L (22-29); Chloride 109 mmol/L (98-107); Estimated GFR 127; Globulin 2.2 g/dL (2.4-3.5); Glucose 128 mg/dL (70-105); Potassium 3.9 mmol/L (3.5-5.1); Protein, Total 5.3 g/dL (6.0-8.3); Sodium 142 mmol/L (136-145)
[2022-06-14] MEDS: VANCOMYCIN 1.25 GM/250 ML BAG 1.25 GM in Premix Bag 1 BAG IVPB SCH ×2 (03:52→11:22)
[2022-06-14 03:54] LABS: Anisocytosis SLIGHT = 6-15 cells (100X) (0-5/hpf); Band 35 % (5-11); Eosinophils 5 % (0-10); Lymphocytes 10 % (21-51); MDiff Complete? YES; Mean Corpuscular HGB CONC 31.8 g/dL (32.0-36.0); Mean Corpuscular Volume 88.1 fL (78.0-98.0); Mean Platelet Volume 10.3 fL (7.4-10.4); Monocytes 2 % (0-10); Neutrophil 48 % (42-75); Platelet Count 255 thou/uL (130-400); RBC Distribution Width 15.6 % (11.5-14.5); Red Blood Cell (RBC) Count 3.19 mill/uL (4.20-5.40); White Blood Cell (WBC) Count 26.6 thou/uL (4.8-10.8)
[2022-06-14] MEDS: Albumin 25% 25 GM/100 ML BOT IVPB SCH ×2 (05:42→11:21)
[2022-06-14] MEDS: Meropenem 1 GM in Sodium Chloride 0.9% 100 ML IVPB SCH ×3 (05:42→22:55)
[2022-06-14] MEDS ORDERED: fentaNYL Citrate/PF 100 MCG/2 ML SYRINGE ONE (06:28)
[2022-06-14] MEDS ORDERED: Midazolam HCl 5 mg/5 ml Vial ONE (06:29)
[2022-06-14] MEDS: Dexmedetomidine 1,000 MCG in Sodium Chloride 0.9% 250 ML 240 ML IVPB SCH ×2 (06:38→18:06)
[2022-06-14] MEDS ORDERED: Albumin 5% 500 ML ONE (07:16)
[2022-06-14] MEDS ORDERED: HYDROmorphone 0.5 MG/0.5 ML SYRINGE ONE (07:16)
[2022-06-14 07:28] LABS: Base Excess (BEa) -4.9 mEq/L (-2.0 to +3.0); CO2 Tension 26.2 mmHg (35.0-45.0); Calcium, Ionized (arterial) 1.14 mmol/L (1.12-1.30); Carboxyhemoglobin (COHb) 0.3 gm% (0.0-3.0); O2 Tension (PaO2), arterial 140.8 mmHg (80.0-100.0); Potassium - ABG Lab 3.83 mmol/L (3.70-5.30); pH, Arterial 7.46 (7.35-7.45)
[2022-06-14 07:40] LABS: Puncture Site RBA
[2022-06-14] MEDS ORDERED: Rocuronium Bromide 10 MG/ML (10ML VIAL) ONE (07:52)
[2022-06-14] MEDS: Furosemide 20 MG/2 ML VIAL SLOW IVP SCH (10:14)
[2022-06-14] MEDS: Pantoprazole 40 MG VIAL IVP SCH (10:15)
[2022-06-14] MEDS: Enoxaparin Sodium 40 MG/0.4 ML SYRINGE SC SCH (10:15)
[2022-06-14] MEDS: Fentanyl CADD 100 ML IV SCH (11:13)
[2022-06-14] MEDS: Micafungin 100 MG in Sodium Chloride 0.9% 100 ML IVPB SCH (12:16)
[2022-06-14] MEDS ORDERED: [UNRECOGNIZED DRUG - OTHER] IV SCH (14:00)
[2022-06-14] MEDS ORDERED: CALCIUM GLUCONATE IV SCH (14:00)
[2022-06-14] MEDS ORDERED: SODIUM ACETATE IV SCH (14:00)
[2022-06-14] MEDS ORDERED: POTASSIUM PHOSPHATE IV SCH (14:00)
[2022-06-15 05:39] LABS: ALT (SGPT) 20 U/L (8-55); AST (SGOT) 19 U/L (5-34); Albumin 2.5 g/dL (3.5-5.0); Alkaline Phosphatase 74 U/L (40-110); Anion Gap 12 mmol/L (10-20); BUN (Urea Nitrogen) 12 mg/dL (7.0-18.7); Bilirubin, Total 0.7 mg/dL (0.2-1.2); Calc. Creatinine Clearance 269 mL/min (70-130); Calcium 7.4 mg/dL (7.8-10.44); Carbon Dioxide 25 mmol/L (22-29); Chloride 110 mmol/L (98-107); Estimated GFR 131; Globulin 1.9 g/dL (2.4-3.5); Glucose 177 mg/dL (70-105); Potassium 3.6 mmol/L (3.5-5.1); Protein, Total 4.4 g/dL (6.0-8.3); Sodium 143 mmol/L (136-145)
[2022-06-15 07:20] LABS: Band 18 % (5-11); Eosinophils 4 % (0-10); Hemoglobin 9.1 g/dL (12.0-16.0); Lymphocytes 9 % (21-51); MDiff Complete? YES; Mean Corpuscular HGB CONC 32.4 g/dL (32.0-36.0); Mean Corpuscular Hemoglobin 28.7 pg (27.0-31.0); Mean Corpuscular Volume 88.7 fL (78.0-98.0); Metamyelocyte 1 % (0-0); Monocytes 2 % (0-10); Myelocyte 1 % (0-0); Neutrophil 65 % (42-75); Platelet Count 213 thou/uL (130-400); RBC Distribution Width 15.6 % (11.5-14.5); Red Blood Cell (RBC) Count 3.16 mill/uL (4.20-5.40); White Blood Cell (WBC) Count 24.3 thou/uL (4.8-10.8)
[2022-06-15] MEDS: Meropenem 1 GM in Sodium Chloride 0.9% 100 ML IVPB SCH ×3 (07:47→22:18)
[2022-06-15 07:48] LABS: Actual Bicarbonate (HCO3a) 23.2 mEq/L (22-28); Base Excess (BEa) -0.8 mEq/L (-2.0 to +3.0); CO2 Tension 35.4 mmHg (35.0-45.0); Calcium, Ionized (arterial) 1.13 mmol/L (1.12-1.30); Carboxyhemoglobin (COHb) 0.3 gm% (0.0-3.0); Hemoglobin (Hb) 9.3 g/dL (12.0-16.0); O2 Tension (PaO2), arterial 81.5 mmHg (80.0-100.0); Potassium - ABG Lab 3.34 mmol/L (3.70-5.30); pH, Arterial 7.43 (7.35-7.45)
[2022-06-15 07:54] LABS: Magnesium 1.4 mg/dL (1.6-2.6); Phosphorus 3.7 mg/dL (2.3-4.7)
[2022-06-15 07:58] LABS: Vancomycin, Trough 9.7 ug/mL
[2022-06-15 08:00] LABS: Puncture Site LRA
[2022-06-15] MEDS: Sodium Chloride 0.45% 1,000 ML IV SCH (09:51)
[2022-06-15] MEDS: Furosemide 20 MG/2 ML VIAL SLOW IVP SCH (10:27)
[2022-06-15] MEDS: Enoxaparin Sodium 40 MG/0.4 ML SYRINGE SC SCH (10:27)
[2022-06-15] MEDS: Pantoprazole 40 MG VIAL IVP SCH (10:28)
[2022-06-15] MEDS ORDERED: Magnesium Sulfate In Water 4 GM in Premix Bag 1 BAG IVPB SCH (10:30)
[2022-06-15 11:01] LABS: Actual Bicarbonate (HCO3a) 18.1 mEq/L (22-28); Analyzer IN Cardio OR; Base Excess (BEa) -7.3 mEq/L (-2.0 to +3.0); CO2 Tension 36.1 mmHg (35.0-45.0); Calcium, Ionized (arterial) 1.15 mmol/L (1.12-1.30); Carboxyhemoglobin (COHb) 0.2 gm% (0.0-3.0); Hemoglobin (Hb) 10.4 g/dL (12.0-16.0); O2 Tension (PaO2), arterial 256.1 mmHg (80.0-100.0); Potassium - ABG Lab 3.86 mmol/L (3.70-5.30); Puncture Site Arterial Line; pH, Arterial 7.32 (7.35-7.45)
[2022-06-15] MEDS ORDERED: Lorazepam 1 MG TAB PO PRN (12:20)
[2022-06-15] MEDS: Lorazepam 1 MG TAB PO SCH ×2 (12:52→18:22)
[2022-06-15] MEDS ORDERED: [UNRECOGNIZED DRUG - OTHER] IV SCH (14:00)
[2022-06-15] MEDS ORDERED: SODIUM ACETATE IV SCH (14:00)
[2022-06-15] MEDS ORDERED: FAT EMULSION IV SCH (14:00)
[2022-06-15] MEDS ORDERED: POTASSIUM PHOSPHATE IV SCH (14:00)
[2022-06-15] MEDS: Dexmedetomidine 1,000 MCG in Sodium Chloride 0.9% 250 ML 240 ML IVPB SCH (16:33)
[2022-06-15] MEDS ORDERED: Pregabalin 50 MG CAP PO SCH (21:00)
[2022-06-15] MEDS: Fentanyl 100 MCG/2 ML VIAL SLOW IVP PRN (22:06)
[2022-06-16] MEDS: Lorazepam 1 MG TAB PO SCH ×5 (01:02→21:44)
[2022-06-16] MEDS: Acetaminophen 325 MG TAB PO PRN ×2 (03:06→12:23)
[2022-06-16 04:46] LABS: ALT (SGPT) 20 U/L (8-55); AST (SGOT) 24 U/L (5-34); Albumin 2.4 g/dL (3.5-5.0); Alkaline Phosphatase 104 U/L (40-110); Anion Gap 11 mmol/L (10-20); BUN (Urea Nitrogen) 10 mg/dL (7.0-18.7); Bilirubin, Total 0.5 mg/dL (0.2-1.2); Calc. Creatinine Clearance 291 mL/min (70-130); Calcium 7.5 mg/dL (7.8-10.44); Carbon Dioxide 29 mmol/L (22-29); Chloride 102 mmol/L (98-107); Estimated GFR 134; Globulin 2.3 g/dL (2.4-3.5); Glucose 170 mg/dL (70-105); Magnesium 1.8 mg/dL (1.6-2.6); Protein, Total 4.7 g/dL (6.0-8.3); Sodium 139 mmol/L (136-145)
[2022-06-16 04:53] LABS: Phosphorus 3.6 mg/dL (2.3-4.7)
[2022-06-16] MEDS: Meropenem 1 GM in Sodium Chloride 0.9% 100 ML IVPB SCH ×3 (05:16→21:43)
[2022-06-16 06:03] LABS: Band 25 % (5-11); Eosinophils 1 % (0-10); Lymphocytes 11 % (21-51); MDiff Complete? YES; Mean Corpuscular HGB CONC 31.6 g/dL (32.0-36.0); Mean Corpuscular Hemoglobin 27.7 pg (27.0-31.0); Mean Corpuscular Volume 87.6 fL (78.0-98.0); Monocytes 5 % (0-10); Myelocyte 1 % (0-0); Neutrophil 57 % (42-75); Platelet Count 211 thou/uL (130-400); RBC Distribution Width 15.6 % (11.5-14.5); Red Blood Cell (RBC) Count 3.25 mill/uL (4.20-5.40); White Blood Cell (WBC) Count 24.9 thou/uL (4.8-10.8)
[2022-06-16] MEDS: Pantoprazole 40 MG VIAL IVP SCH (08:47)
[2022-06-16] MEDS: Furosemide 20 MG/2 ML VIAL SLOW IVP SCH (08:47)
[2022-06-16] MEDS: Enoxaparin Sodium 40 MG/0.4 ML SYRINGE SC SCH (08:48)
[2022-06-16] MEDS: Fentanyl 100 MCG/2 ML VIAL SLOW IVP PRN (08:49)
[2022-06-16] MEDS ORDERED: Potassium Chloride 40 MEQ, Magnesium Sulfate 2 GM in Sodium Chloride 0.9% 250 ML 250 ML IVPB SCH (09:00)
[2022-06-16] MEDS: Saccharomyces boulardii 250 MG CAP PO SCH (10:19)
[2022-06-16] MEDS: Ketorolac Tromethamine 30 MG/ML VIAL IVP SCH ×3 (12:33→23:29)
[2022-06-16] MEDS: Fentanyl CADD 100 ML IV SCH (15:36)
[2022-06-16] MEDS: POTASSIUM CHLORIDE IV SCH (15:36)
[2022-06-16] MEDS: SODIUM ACETATE IV SCH (15:36)
[2022-06-16] MEDS: [UNRECOGNIZED DRUG - OTHER] IV SCH (15:36)
[2022-06-16] MEDS: cloNIDine 0.1 MG TAB PO SCH ×2 (15:37→21:44)
[2022-06-16] MEDS: Metoclopramide HCl 10 MG/2 ML VIAL IVP SCH (21:43)
[2022-06-17] MEDS: cloNIDine 0.1 MG TAB PO SCH ×4 (02:08→21:01)
[2022-06-17 05:01] LABS: #Eosinphils 0.9 thou/uL (0.0-0.7); #Lymphocytes 2.9 thou/uL (1.20-3.40); #Monocytes 1.4 thou/uL (0.11-0.59); #Neutrophils 11.3 thou/uL (1.40-6.50); %Basophils 0.2 % (0.0-1.0); %Eosinophils 5.7 % (0.0-10.0); %Lymphocytes 17.4 % (21.0-51.0); %Monocytes 8.2 % (0.0-10.0); %Neutrophils 68.5 % (42.0-75.0); Hemoglobin 8.3 g/dL (12.0-16.0); Mean Corpuscular HGB CONC 30.9 g/dL (32.0-36.0); Mean Corpuscular Hemoglobin 27.1 pg (27.0-31.0); Mean Corpuscular Volume 87.9 fL (78.0-98.0); Platelet Count 210 thou/uL (130-400); RBC Distribution Width 15.6 % (11.5-14.5); Red Blood Cell (RBC) Count 3.06 mill/uL (4.20-5.40); White Blood Cell (WBC) Count 16.6 thou/uL (4.8-10.8)
[2022-06-17 05:09] LABS: Albumin 2.2 g/dL (3.5-5.0); Anion Gap 11 mmol/L (10-20); BUN (Urea Nitrogen) 10 mg/dL (7.0-18.7); Bilirubin, Total 0.5 mg/dL (0.2-1.2); Calc. Creatinine Clearance 287 mL/min (70-130); Calcium 7.7 mg/dL (7.8-10.44); Carbon Dioxide 33 mmol/L (22-29); Chloride 100 mmol/L (98-107); Estimated GFR 134; Glucose 160 mg/dL (70-105); Potassium 3.3 mmol/L (3.5-5.1); Protein, Total 4.8 g/dL (6.0-8.3); Sodium 141 mmol/L (136-145)
[2022-06-17 05:10] LABS: ALT (SGPT) 16 U/L (8-55); AST (SGOT) 22 U/L (5-34); Alkaline Phosphatase 93 U/L (40-110); Globulin 2.6 g/dL (2.4-3.5)
[2022-06-17] MEDS: Ketorolac Tromethamine 30 MG/ML VIAL IVP SCH ×3 (05:19→20:57)
[2022-06-17] MEDS: Lorazepam 1 MG TAB PO SCH (05:20)
[2022-06-17] MEDS: Meropenem 1 GM in Sodium Chloride 0.9% 100 ML IVPB SCH ×3 (05:20→22:39)
[2022-06-17] MEDS: Metoclopramide HCl 10 MG/2 ML VIAL IVP SCH ×3 (05:20→22:39)
[2022-06-17 07:22] LABS: Phosphorus 3.4 mg/dL (2.3-4.7)
[2022-06-17] MEDS ORDERED: Lorazepam 1 MG TAB PO PRN (08:03)
[2022-06-17] MEDS ORDERED: Potassium Chloride 40 MEQ in Premix Bag 1 BAG IVPB SCH (09:00)
[2022-06-17] MEDS ORDERED: traMADol HCl 50 MG TAB PO PRN ×4 (09:49→12:00)
[2022-06-17] MEDS ORDERED: Cyclobenzaprine 10 MG TAB PO PRN (09:49)
[2022-06-17] MEDS: Enoxaparin Sodium 40 MG/0.4 ML SYRINGE SC SCH (10:19)
[2022-06-17] MEDS: Saccharomyces boulardii 250 MG CAP PO SCH (10:19)
[2022-06-17] MEDS: Pantoprazole 40 MG VIAL IVP SCH (10:20)
[2022-06-17] MEDS ORDERED: fentaNYL 50 mcg/hour Patch TD SCH (10:30)
[2022-06-17] MEDS ORDERED: Potassium Chloride 40 MEQ/100 ML PREMIX BAG ONE (10:36)
[2022-06-17] MEDS: Acetaminophen 500 MG TAB PO SCH ×3 (11:20→22:39)
[2022-06-17] MEDS ORDERED: Potassium Chloride 20 MEQ TAB PO SCH (13:15)
[2022-06-17] MEDS: Fentanyl 100 MCG/2 ML VIAL SLOW IVP PRN (13:56)
[2022-06-17] MEDS ORDERED: POTASSIUM CHLORIDE IV SCH (14:00)
[2022-06-17] MEDS ORDERED: Fentanyl 100 MCG/2 ML VIAL SLOW IVP PRN (14:00)
[2022-06-17] MEDS ORDERED: [UNRECOGNIZED DRUG - OTHER] IV SCH (14:00)
[2022-06-17] MEDS ORDERED: FAT EMULSION IV SCH (14:00)
[2022-06-17] MEDS ORDERED: SODIUM ACETATE IV SCH (14:00)
[2022-06-17] MEDS: Albuterol Sulfate 1.25 MG/3 ML NEB EZPAP SCH ×2 (14:32→18:44)
[2022-06-18] MEDS: Ketorolac Tromethamine 30 MG/ML VIAL IVP SCH ×3 (00:57→14:18)
[2022-06-18] MEDS: cloNIDine 0.1 MG TAB PO SCH ×4 (02:51→21:12)
[2022-06-18] MEDS: Acetaminophen 500 MG TAB PO SCH ×4 (04:49→21:09)
[2022-06-18 04:56] LABS: #Eosinphils 0.9 thou/uL (0.0-0.7); #Monocytes 1.6 thou/uL (0.11-0.59); #Neutrophils 7.5 thou/uL (1.40-6.50); %Basophils 0.1 % (0.0-1.0); %Eosinophils 7.2 % (0.0-10.0); %Lymphocytes 22.8 % (21.0-51.0); %Monocytes 12.3 % (0.0-10.0); %Neutrophils 57.5 % (42.0-75.0); Hemoglobin 8.3 g/dL (12.0-16.0); Mean Corpuscular HGB CONC 31.3 g/dL (32.0-36.0); Mean Corpuscular Hemoglobin 27.6 pg (27.0-31.0); Mean Corpuscular Volume 88.2 fL (78.0-98.0); Mean Platelet Volume 11.1 fL (7.4-10.4); Platelet Count 228 thou/uL (130-400); RBC Distribution Width 15.8 % (11.5-14.5); Red Blood Cell (RBC) Count 2.99 mill/uL (4.20-5.40); White Blood Cell (WBC) Count 13.1 thou/uL (4.8-10.8)
[2022-06-18 05:21] LABS: Anion Gap 10 mmol/L (10-20); BUN (Urea Nitrogen) 11 mg/dL (7.0-18.7); Calc. Creatinine Clearance 283 mL/min (70-130); Carbon Dioxide 33 mmol/L (22-29); Chloride 102 mmol/L (98-107); Potassium 4.3 mmol/L (3.5-5.1); Sodium 141 mmol/L (136-145)
[2022-06-18 05:22] LABS: ALT (SGPT) 22 U/L (8-55); AST (SGOT) 35 U/L (5-34); Albumin 2.4 g/dL (3.5-5.0); Alkaline Phosphatase 115 U/L (40-110); Bilirubin, Total 0.4 mg/dL (0.2-1.2); Estimated GFR 133; Globulin 2.8 g/dL (2.4-3.5); Glucose 145 mg/dL (70-105); Protein, Total 5.2 g/dL (6.0-8.3)
[2022-06-18] MEDS: Meropenem 1 GM in Sodium Chloride 0.9% 100 ML IVPB SCH ×3 (06:24→22:10)
[2022-06-18] MEDS: Metoclopramide HCl 10 MG/2 ML VIAL IVP SCH ×3 (06:25→21:10)
[2022-06-18] MEDS: Albuterol Sulfate 1.25 MG/3 ML NEB EZPAP SCH ×3 (07:26→21:50)
[2022-06-18] MEDS: Pantoprazole 40 MG VIAL IVP SCH (10:22)
[2022-06-18] MEDS: Saccharomyces boulardii 250 MG CAP PO SCH (10:22)
[2022-06-18] MEDS: Enoxaparin Sodium 40 MG/0.4 ML SYRINGE SC SCH (10:22)
[2022-06-18] MEDS ORDERED: Furosemide 20 MG/2 ML VIAL SLOW IVP SCH (14:00)
[2022-06-18] MEDS: [UNRECOGNIZED DRUG - OTHER] IV SCH (14:21)
[2022-06-18] MEDS: POTASSIUM CHLORIDE IV SCH (14:21)
[2022-06-18] MEDS: SODIUM ACETATE IV SCH (14:21)
[2022-06-19] MEDS: cloNIDine 0.1 MG TAB PO SCH ×3 (02:43→20:25)
[2022-06-19] MEDS: Acetaminophen 500 MG TAB PO SCH ×4 (04:27→22:27)
[2022-06-19] MEDS: Metoclopramide HCl 10 MG/2 ML VIAL IVP SCH ×3 (05:29→22:26)
[2022-06-19] MEDS: Meropenem 1 GM in Sodium Chloride 0.9% 100 ML IVPB SCH (05:30)
[2022-06-19 07:23] LABS: ALT (SGPT) 24 U/L (8-55); AST (SGOT) 37 U/L (5-34); Albumin 2.7 g/dL (3.5-5.0); Alkaline Phosphatase 125 U/L (40-110); Anion Gap 14 mmol/L (10-20); BUN (Urea Nitrogen) 8 mg/dL (7.0-18.7); Bilirubin, Total 0.6 mg/dL (0.2-1.2); Calc. Creatinine Clearance 250 mL/min (70-130); Calcium 8.3 mg/dL (7.8-10.44); Carbon Dioxide 26 mmol/L (22-29); Chloride 103 mmol/L (98-107); Estimated GFR 129; Globulin 3.1 g/dL (2.4-3.5); Glucose 138 mg/dL (70-105); Magnesium 1.6 mg/dL (1.6-2.6); Phosphorus 4.1 mg/dL (2.3-4.7); Potassium 4.1 mmol/L (3.5-5.1); Protein, Total 5.8 g/dL (6.0-8.3); Sodium 139 mmol/L (136-145)
[2022-06-19] MEDS: Albuterol Sulfate 1.25 MG/3 ML NEB EZPAP SCH ×2 (07:50→17:55)
[2022-06-19] MEDS ORDERED: traMADol HCl 50 MG TAB PO PRN (09:58)
[2022-06-19] MEDS: Saccharomyces boulardii 250 MG CAP PO SCH (10:00)
[2022-06-19] MEDS: Enoxaparin Sodium 40 MG/0.4 ML SYRINGE SC SCH (10:01)
[2022-06-19] MEDS: Pantoprazole 40 MG VIAL IVP SCH (10:06)
[2022-06-19] MEDS ORDERED: Magnesium 2 GM/50 ML(in water) 3 GM in Premix Bag 1 BAG IVPB SCH (11:30)
[2022-06-19] MEDS ORDERED: Magnesium Sulfate 3 GM in Sodium Chloride 0.9% 100 ML IVPB SCH (12:00)
[2022-06-19] MEDS ORDERED: Ketorolac Tromethamine 30 MG/ML VIAL IVP SCH (13:00)
[2022-06-19] MEDS: Ibuprofen 200 MG TAB PO SCH ×2 (14:33→22:28)
[2022-06-19] MEDS: traMADol HCl 50 MG TAB PO SCH ×3 (14:35→23:51)
[2022-06-19] MEDS: Gabapentin 300 MG CAP PO SCH ×2 (14:37→20:21)
[2022-06-19] MEDS: Ketorolac Tromethamine 30 MG/ML VIAL IVP SCH ×3 (17:41→23:50)
[2022-06-19] MEDS: Ferrous Sulfate 325 MG TAB PO SCH (17:42)
[2022-06-19] MEDS ORDERED: Promethazine HCl 12.5 MG in Sodium Chloride 0.9% 50 ML IVPB PRN (20:53)
[2022-06-19] MEDS ORDERED: Scopolamine 1.5 mg/72 hour Patch TD SCH (21:00)
[2022-06-20] MEDS: Albuterol Sulfate 1.25 MG/3 ML NEB EZPAP SCH ×2 (00:13→07:22)
[2022-06-20] MEDS: Acetaminophen 500 MG TAB PO SCH ×4 (05:25→23:05)
[2022-06-20] MEDS: Ibuprofen 200 MG TAB PO SCH (05:25)
[2022-06-20] MEDS: Metoclopramide HCl 10 MG/2 ML VIAL IVP SCH ×3 (05:26→23:05)
[2022-06-20] MEDS: traMADol HCl 50 MG TAB PO SCH ×4 (05:26→23:05)
[2022-06-20] MEDS: Ketorolac Tromethamine 30 MG/ML VIAL IVP SCH (05:28)
[2022-06-20 06:09] LABS: #Basophils 0.1 thou/uL (0.0-0.2); #Eosinphils 0.8 thou/uL (0.0-0.7); #Lymphocytes 2.7 thou/uL (1.20-3.40); #Monocytes 1.4 thou/uL (0.11-0.59); #Neutrophils 7.5 thou/uL (1.40-6.50); %Basophils 0.6 % (0.0-1.0); %Eosinophils 6.1 % (0.0-10.0); %Lymphocytes 21.5 % (21.0-51.0); %Neutrophils 60.9 % (42.0-75.0); Hemoglobin 8.6 g/dL (12.0-16.0); Mean Corpuscular HGB CONC 32.3 g/dL (32.0-36.0); Mean Corpuscular Hemoglobin 28.2 pg (27.0-31.0); Mean Corpuscular Volume 87.2 fL (78.0-98.0); Platelet Count 282 thou/uL (130-400); RBC Distribution Width 16.3 % (11.5-14.5); Red Blood Cell (RBC) Count 3.06 mill/uL (4.20-5.40); White Blood Cell (WBC) Count 12.3 thou/uL (4.8-10.8)
[2022-06-20 06:52] LABS: Anion Gap 14 mmol/L (10-20); BUN (Urea Nitrogen) 7 mg/dL (7.0-18.7); Calc. Creatinine Clearance 260 mL/min (70-130); Calcium 8.5 mg/dL (7.8-10.44); Carbon Dioxide 26 mmol/L (22-29); Chloride 103 mmol/L (98-107); Estimated GFR 130; Glucose 91 mg/dL (70-105); Phosphorus 4.6 mg/dL (2.3-4.7); Sodium 139 mmol/L (136-145)
[2022-06-20] MEDS ORDERED: Ibuprofen 200 MG TAB PO PRN (08:15)
[2022-06-20] MEDS: Morphine 2 MG/ML VIAL SLOW IVP PRN (08:28)
[2022-06-20] MEDS: Enoxaparin Sodium 40 MG/0.4 ML SYRINGE SC SCH (08:58)
[2022-06-20] MEDS: Ferrous Sulfate 325 MG TAB PO SCH ×2 (08:58→17:22)
[2022-06-20] MEDS: Pantoprazole 40 MG VIAL IVP SCH (08:59)
[2022-06-20] MEDS: Saccharomyces boulardii 250 MG CAP PO SCH (09:00)
[2022-06-20] MEDS: Gabapentin 300 MG CAP PO SCH ×3 (09:01→20:04)
[2022-06-20] MEDS: cloNIDine 0.1 MG TAB PO SCH ×2 (09:04→20:05)
[2022-06-20] MEDS ORDERED: Bupivacaine/Epinephrine 0.25% 30 ML VIAL ONE (09:50)
[2022-06-20] MEDS ORDERED: fentaNYL Citrate/PF 100 MCG/2 ML SYRINGE ONE (10:02)
[2022-06-20] MEDS ORDERED: Propofol 500 MG/50 ML VIAL ONE (10:02)
[2022-06-20 13:54] VITALS: BMI 41.7
[2022-06-20] MEDS: Sodium Chloride 0.9% 1,000 ML IV SCH (20:05)
[2022-06-21] MEDS: Morphine 2 MG/ML VIAL SLOW IVP PRN (00:26)
[2022-06-21] MEDS: Acetaminophen 500 MG TAB PO SCH ×4 (04:58→21:15)
[2022-06-21] MEDS: Sodium Chloride 0.9% 1,000 ML IV SCH (05:30)
[2022-06-21] MEDS: traMADol HCl 50 MG TAB PO SCH ×3 (06:14→17:53)
[2022-06-21] MEDS: Metoclopramide HCl 10 MG/2 ML VIAL IVP SCH ×3 (06:15→21:15)
[2022-06-21 08:45] LABS: #Basophils 0.1 thou/uL (0.0-0.2); #Eosinphils 0.6 thou/uL (0.0-0.7); #Lymphocytes 2.9 thou/uL (1.20-3.40); #Monocytes 1.2 thou/uL (0.11-0.59); #Neutrophils 8.7 thou/uL (1.40-6.50); %Basophils 0.6 % (0.0-1.0); %Eosinophils 4.1 % (0.0-10.0); %Lymphocytes 21.7 % (21.0-51.0); %Neutrophils 64.5 % (42.0-75.0); Hemoglobin 8.6 g/dL (12.0-16.0); Mean Corpuscular HGB CONC 31.3 g/dL (32.0-36.0); Mean Corpuscular Hemoglobin 27.2 pg (27.0-31.0); Mean Corpuscular Volume 86.8 fL (78.0-98.0); Mean Platelet Volume 11.1 fL (7.4-10.4); Platelet Count 328 thou/uL (130-400); RBC Distribution Width 16.5 % (11.5-14.5); Red Blood Cell (RBC) Count 3.17 mill/uL (4.20-5.40); White Blood Cell (WBC) Count 13.4 thou/uL (4.8-10.8)
[2022-06-21 09:07] LABS: Anion Gap 16 mmol/L (10-20); BUN (Urea Nitrogen) 4 mg/dL (7.0-18.7); Calc. Creatinine Clearance 245 mL/min (70-130); Calcium 8.4 mg/dL (7.8-10.44); Carbon Dioxide 24 mmol/L (22-29); Chloride 104 mmol/L (98-107); Estimated GFR 129; Glucose 94 mg/dL (70-105); Potassium 3.9 mmol/L (3.5-5.1); Sodium 140 mmol/L (136-145)
[2022-06-21] MEDS: Ferrous Sulfate 325 MG TAB PO SCH ×2 (09:14→16:25)
[2022-06-21] MEDS: cloNIDine 0.1 MG TAB PO SCH ×2 (09:15→21:15)
[2022-06-21] MEDS: Saccharomyces boulardii 250 MG CAP PO SCH (09:19)
[2022-06-21] MEDS: Gabapentin 300 MG CAP PO SCH ×3 (09:19→21:15)
[2022-06-21] MEDS: Enoxaparin Sodium 40 MG/0.4 ML SYRINGE SC SCH (09:19)
[2022-06-21] MEDS ORDERED: fentaNYL Citrate/PF 100 MCG/2 ML SYRINGE ONE ×2 (10:19→10:20)
[2022-06-21] MEDS ORDERED: SUGAMMADEX SODIUM 200 MG/2 ML VIAL ONE (10:19)
[2022-06-21] MEDS ORDERED: Midazolam HCl 2 mg/2 ml Vial ONE (10:25)
[2022-06-21] MEDS ORDERED: Sodium Chloride 0.9% 100 ML ONE (10:43)
[2022-06-21] MEDS ORDERED: CEFAZOLIN 2 GM VIAL ONE (10:43)
[2022-06-21] MEDS ORDERED: Ondansetron PF 4 MG/2 ML Vial ONE (10:52)
[2022-06-21] MEDS ORDERED: Phenylephrine 10 MG/ML VIAL ONE (10:52)
[2022-06-21] MEDS ORDERED: Rocuronium Bromide 10 MG/ML (10ML VIAL) ONE (10:52)
[2022-06-21] MEDS ORDERED: Dexamethasone 20 MG/5 ML VIAL ONE (10:52)
[2022-06-21] MEDS ORDERED: Lidocaine 1% PF 5 ML VIAL ONE (10:52)
[2022-06-21] MEDS ORDERED: PROPOFOL 200 MG/20 ML VIAL ONE (10:52)
[2022-06-21] MEDS ORDERED: Neomycin-Polymyxin 1 ML AMP ONE (11:16)
[2022-06-21] MEDS ORDERED: Bupivacaine 0.25% 10 ML VIAL ONE (11:16)
[2022-06-21] MEDS ORDERED: Fentanyl 100 MCG/2 ML VIAL ONE ×2 (12:25→12:38)
[2022-06-21] MEDS ORDERED: HYDROmorphone 2 MG/ML VIAL SLOW IVP PRN (12:26)
[2022-06-21] MEDS ORDERED: Ondansetron HCl/PF 4 MG/2 ML Vial IVP PRN (12:26)
[2022-06-21] MEDS ORDERED: Promethazine HCl 25 MG/ML VIAL IVPB PRN (12:26)
[2022-06-21] MEDS ORDERED: Promethazine HCl 25 MG/ML VIAL IM PRN (12:26)
[2022-06-21] MEDS ORDERED: Meperidine HCl/PF 25 MG/ML VIAL SLOW IVP PRN (12:26)
[2022-06-21] MEDS ORDERED: Meperidine HCl/PF 25 MG/ML VIAL ONE (12:35)
[2022-06-22] MEDS: traMADol HCl 50 MG TAB PO SCH ×3 (02:09→11:41)
[2022-06-22] MEDS: Acetaminophen 500 MG TAB PO SCH ×2 (05:50→08:47)
[2022-06-22] MEDS: Metoclopramide HCl 10 MG/2 ML VIAL IVP SCH ×2 (05:50→14:45)
[2022-06-22] MEDS: Gabapentin 300 MG CAP PO SCH ×2 (08:47→14:46)
[2022-06-22] MEDS: Saccharomyces boulardii 250 MG CAP PO SCH (08:47)
[2022-06-22] MEDS: Ferrous Sulfate 325 MG TAB PO SCH (08:47)
[2022-06-22] MEDS: cloNIDine 0.1 MG TAB PO SCH (08:48)
[2022-06-22] MEDS: Enoxaparin Sodium 40 MG/0.4 ML SYRINGE SC SCH (08:48)
[2022-06-22 09:23] LABS: #Basophils 0.1 thou/uL (0.0-0.2); #Eosinphils 0.2 thou/uL (0.0-0.7); #Lymphocytes 3.1 thou/uL (1.20-3.40); #Monocytes 1.4 thou/uL (0.11-0.59); #Neutrophils 6.7 thou/uL (1.40-6.50); %Basophils 0.6 % (0.0-1.0); %Eosinophils 2.1 % (0.0-10.0); %Lymphocytes 27.2 % (21.0-51.0); %Monocytes 11.9 % (0.0-10.0); %Neutrophils 58.4 % (42.0-75.0); Hemoglobin 8.3 g/dL (12.0-16.0); Mean Corpuscular HGB CONC 31.3 g/dL (32.0-36.0); Mean Corpuscular Hemoglobin 27.3 pg (27.0-31.0); Mean Corpuscular Volume 87.2 fL (78.0-98.0); Platelet Count 349 thou/uL (130-400); RBC Distribution Width 16.3 % (11.5-14.5); Red Blood Cell (RBC) Count 3.04 mill/uL (4.20-5.40); White Blood Cell (WBC) Count 11.5 thou/uL (4.8-10.8)
[2022-06-22 09:47] LABS: ALT (SGPT) 30 U/L (8-55); AST (SGOT) 43 U/L (5-34); Albumin 3.1 g/dL (3.5-5.0); Alkaline Phosphatase 139 U/L (40-110); Anion Gap 17 mmol/L (10-20); BUN (Urea Nitrogen) 4 mg/dL (7.0-18.7); Bilirubin, Total 0.4 mg/dL (0.2-1.2); Calc. Creatinine Clearance 225 mL/min (70-130); Calcium 8.5 mg/dL (7.8-10.44); Carbon Dioxide 24 mmol/L (22-29); Chloride 103 mmol/L (98-107); Estimated GFR 126; Globulin 3.7 g/dL (2.4-3.5); Glucose 108 mg/dL (70-105); Magnesium 1.5 mg/dL (1.6-2.6); Potassium 3.7 mmol/L (3.5-5.1); Protein, Total 6.8 g/dL (6.0-8.3); Sodium 140 mmol/L (136-145)
[2022-06-22 12:49] VITALS: BP 91/58; TEMP 98.2
[2022-06-22] MEDS ORDERED: Magnesium Sulfate In Water 4 GM in Premix Bag 1 BAG IVPB SCH (13:30)
== END 2022-06-22 15:36 | disposition home or self-care (01) | DRG 853 ==
LOC: ERS 22:24 → ERHOLD 06-05 05:28 → SURG A 06-05 07:02 → IMCU/EMU 06-05 14:12 → CCU 06-07 08:11 → 2NO 06-18 16:20 → SURG A 06-19 16:46
PROVIDERS: ADMIT Internal Medicine; ATTEND Internal Medicine
PROC: 3E03329 Introduction of Other Anti-infective into Peripheral Vein, Percutaneous Approach (ICD-10-PCS; 2022-06-05)
PROC: 5A09357 Assistance with Respiratory Ventilation, Less than 24 Consecutive Hours, Continuous Positive Airway Pressure (ICD-10-PCS; 2022-06-07)
PROC: 5A1955Z Respiratory Ventilation, Greater than 96 Consecutive Hours (ICD-10-PCS; 2022-06-07)
PROC: 02H633Z Insertion of Infusion Device into Right Atrium, Percutaneous Approach (ICD-10-PCS; 2022-06-07)
PROC: B548ZZA Ultrasonography of Superior Vena Cava, Guidance (ICD-10-PCS; 2022-06-07)
PROC: 0BH18EZ Insertion of Endotracheal Airway into Trachea, Via Natural or Artificial Opening Endoscopic (ICD-10-PCS; 2022-06-07)
PROC: 0D9W0ZZ Drainage of Peritoneum, Open Approach (ICD-10-PCS; principal; 2022-06-08)
PROC: 0W9G00Z Drainage of Peritoneal Cavity with Drainage Device, Open Approach (ICD-10-PCS; 2022-06-08)
PROC: 3E043XZ Introduction of Vasopressor into Central Vein, Percutaneous Approach (ICD-10-PCS; 2022-06-08)
PROC: 06HY33Z Insertion of Infusion Device into Lower Vein, Percutaneous Approach (ICD-10-PCS; 2022-06-08)
PROC: 0FC98ZZ Extirpation of Matter from Common Bile Duct, Via Natural or Artificial Opening Endoscopic (ICD-10-PCS; 2022-06-09)
PROC: 0F798DZ Dilation of Common Bile Duct with Intraluminal Device, Via Natural or Artificial Opening Endoscopic (ICD-10-PCS; 2022-06-09)
PROC: BF101ZZ Fluoroscopy of Bile Ducts using Low Osmolar Contrast (ICD-10-PCS; 2022-06-09)
PROC: 0D9W0ZZ Drainage of Peritoneum, Open Approach (ICD-10-PCS; 2022-06-10)
PROC: 30233N1 Transfusion of Nonautologous Red Blood Cells into Peripheral Vein, Percutaneous Approach (ICD-10-PCS; 2022-06-10)
PROC: 0D9W0ZZ Drainage of Peritoneum, Open Approach (ICD-10-PCS; 2022-06-12)
PROC: 0D9W0ZZ Drainage of Peritoneum, Open Approach (ICD-10-PCS; 2022-06-14)
PROC: 3E0M05Z Introduction of Adhesion Barrier into Peritoneal Cavity, Open Approach (ICD-10-PCS; 2022-06-14)
PROC: 3E0436Z Introduction of Nutritional Substance into Central Vein, Percutaneous Approach (ICD-10-PCS; 2022-06-15)
PROC: 3E0G76Z Introduction of Nutritional Substance into Upper GI, Via Natural or Artificial Opening (ICD-10-PCS; 2022-06-19)
PROC: 0JQ80ZZ Repair Abdomen Subcutaneous Tissue and Fascia, Open Approach (ICD-10-PCS; 2022-06-21)
DX: A41.9 Sepsis, unspecified organism (principal); K85.10 Biliary acute pancreatitis without necrosis or infection; K65.3 Choleperitonitis; R65.21 Severe sepsis with septic shock; J96.01 Acute respiratory failure with hypoxia; K91.86 Retained cholelithiasis following cholecystectomy; M79.A3 Nontraumatic compartment syndrome of abdomen; N17.9 Acute kidney failure, unspecified; R18.8 Other ascites; N39.0 Urinary tract infection, site not specified; D62 Acute posthemorrhagic anemia; E87.1 Hypo-osmolality and hyponatremia; J98.11 Atelectasis; K56.0 Paralytic ileus; Z20.822 Contact with and (suspected) exposure to COVID-19; Y83.6 Removal of other organ (partial) (total) as the cause of abnormal reaction of the patient, or of later complication, without mention of misadventure at the time of the procedure; R74.8 Abnormal levels of other serum enzymes; R73.9 Hyperglycemia, unspecified; E83.52 Hypercalcemia; E86.0 Dehydration; E86.1 Hypovolemia; F41.9 Anxiety disorder, unspecified; E83.41 Hypermagnesemia; E87.5 Hyperkalemia; E87.70 Fluid overload, unspecified; E87.6 Hypokalemia; E83.42 Hypomagnesemia; E83.39 Other disorders of phosphorus metabolism; Z78.1 Physical restraint status; Z91.018 Allergy to other foods; Z90.49 Acquired absence of other specified parts of digestive tract; Z86.39 Personal history of other endocrine, nutritional and metabolic disease; Z87.891 Personal history of nicotine dependence
CPT/HCPCS: 36415; 36416; 36430; 36600; 71045; 74019; 74176; 74177; 74330; 76705; 80048; 80053; 80202; 81003; 81015; 82550; 82570; 82805; 83036; 83605; 83690; 83735; 84100; 84156; 84300; 84540; 84703; 85025; 85610; 85730; 86850; 86870; 86900; 86901; 86922; 87040; 87086; 93005; 93010; 94002; 94003; 94640; 94660; 96361; 96374; 96375; 96376; 97139; A4217; C1776; C2617; C9113; J0610; J0690; J1100; J1170; J1200; J1642; J1650; J1885; J1940; J2175; J2185; J2248; J2250; J2270; J2370; J2405; J2543; J2704; J2765; J3010; J3370; J3475; J3480; J3490; J7030; J7050; J7070; J7120; P9016; P9045; P9047; Q9967; S0020; U0003; U0005

== ENCOUNTER 2022-08-18 12:52 | Outpatient (CLI) | payer OTHER | END 2022-08-18 12:53 | disposition home or self-care (01) | LOC: LABBT 12:52 | PROVIDERS: ATTEND Internal Medicine Gastroenterology | DX: Z01.812 Encounter for preprocedural laboratory examination (principal); Z20.822 Contact with and (suspected) exposure to COVID-19 | CPT/HCPCS: 87811 ==

== ENCOUNTER 2022-08-19 07:56 | Day surgery (SDC) | payer OTHER ==
[2022-08-17 15:43] VITALS: BMI 29.2
[2022-08-19] MEDS ORDERED: Fentanyl 100 MCG/2 ML VIAL ONE (08:59)
[2022-08-19] MEDS ORDERED: SUGAMMADEX SODIUM 200 MG/2 ML VIAL ONE (08:59)
[2022-08-19] MEDS ORDERED: Iopamidol 15 ML ONE ×2 (09:32→09:59)
[2022-08-19] MEDS ORDERED: Ondansetron PF 4 MG/2 ML Vial ONE (09:42)
[2022-08-19] MEDS ORDERED: PHENYLEPHRINE-NS 100 MCG/ML 10 ML SYRINGE ONE (09:42)
[2022-08-19] MEDS ORDERED: Rocuronium Bromide 10 MG/ML (10ML VIAL) ONE (09:42)
[2022-08-19] MEDS ORDERED: ePHEDrine 50 MG/ML VIAL ONE (09:42)
[2022-08-19] MEDS ORDERED: NEOSTIGMINE 3 MG/3 ML SYR 3 MG/3 ML SYRINGE ONE (09:42)
[2022-08-19] MEDS ORDERED: Dexamethasone 20 MG/5 ML VIAL ONE (09:42)
[2022-08-19] MEDS ORDERED: Glycopyrrolate 0.2 MG/ML 5 ML SYRINGE ONE (09:42)
[2022-08-19] MEDS ORDERED: PROPOFOL 200 MG/20 ML VIAL ONE (09:42)
== END 2022-08-19 12:35 | disposition home or self-care (01) ==
LOC: SDC 07:56
PROVIDERS: ATTEND Internal Medicine Gastroenterology
PROC: 0FPB8DZ Removal of Intraluminal Device from Hepatobiliary Duct, Via Natural or Artificial Opening Endoscopic (ICD-10-PCS; principal; 2022-08-19)
DX: Z46.59 Encounter for fitting and adjustment of other gastrointestinal appliance and device (principal); K86.9 Disease of pancreas, unspecified; E11.9 Type 2 diabetes mellitus without complications; Z79.84 Long term (current) use of oral hypoglycemic drugs; Z79.899 Other long term (current) drug therapy; Z20.822 Contact with and (suspected) exposure to COVID-19
CPT/HCPCS: 74330; J1100; J1610; J2405; J2704; J3010; J3490; Q9967